=== PATIENT | male | born 1950 | race Caucasian/White ===

== ENCOUNTER → 2016-08-08 | Outpatient (CLI) | payer OTHER ==
[~2016-08-08] MED LIST: ALBU1AER9 INH; ALL300 PO; ALLO300T2 PO; ASPI81TA28 PO; ATEN50TA8 PO; ATOR-26 PO; BENZ100C84 PO; CLR10 PO; COLC0.6T54 PO; CYAN100T PO; FLUT0.15 NAE; FRS/40 PO; LANS15CA6 PO; LATA0.009 OPB; LISI-725 PO; LISI10TA PO; MULT-506 PO; MULT-513 PO; NTRGSL/4 UT; POTA20TA16 PO; PSYL48.511 PO; RIVA1TAB4 PO; SPRIN/30 INH; SYMIN160 INH; TNR50 PO; VNTHFA/IN INH; ZNTT/150 PO
== END ==
LOC: C.RDSM 14:45
PROVIDERS: ATTEND Physical Medicine & Rehabilitation Sports Medicine
DX: Z96.652 Presence of left artificial knee joint (principal)

== ENCOUNTER → 2017-02-06 | Outpatient (CLI) | payer OTHER | END | disposition home or self-care (01) | LOC: C.RDSM 09:27 | PROVIDERS: ATTEND Physical Medicine & Rehabilitation Sports Medicine | DX: Z96.652 Presence of left artificial knee joint (principal) ==

== ENCOUNTER 2017-11-12 11:29 | Emergency (ER) | payer OTHER ==
[~2017-11-12] VITALS: Ht 165.1 cm; Wt 111.3 kg
[~2017-11-12 11:29] MED LIST changes: -ALBU1AER9 INH; -ALL300 PO; -ATEN50TA8 PO; -COLC0.6T54 PO; -FLUT0.15 NAE; -LANS15CA6 PO; -LISI10TA PO; -MULT-506 PO; +POTA-639 PO; -POTA20TA16 PO; +RANI150T85 PO; -VNTHFA/IN INH; -ZNTT/150 PO
[2017-11-12 11:32] VITALS: TEMP 36.8; Ht 165.1 cm; Wt 111.3 kg
[2017-11-12] MEDS ORDERED: OXYMETAZOLINE HCL 0.05% NA SPR 15 ML BTL ONE (11:38)
[2017-11-12 12:17] LABS: HEMATOCRIT 41.9 % (42-52); HEMOGLOBIN 14.4 g/dL (14.0-18.0); MEAN CELL VOLUME 98.6 fL (80-100); MEAN CORPUSCULAR HEMOGLOBIN 33.9 pg (25-34); MEAN CORPUSCULAR HGB CONC 34.4 g/dl (32-36); MEAN PLATELET VOLUME 9.5 fL (7.4-10.4); PLATELET COUNT 182 K/uL (130-400); RED CELL DISTRIBUTION WIDTH CV 13.8 % (11.5-14.5); RED CELL DISTRIBUTION WIDTH SD 49.4 fL (36.4-46.3); WHITE BLOOD COUNT 7.78 K/uL (4.8-10.8)
[2017-11-12] MEDS ORDERED: HydrALAZINE HCL 20 MG/ML VIAL IV. STA ×2 (12:17→13:12)
[2017-11-12 12:25] LABS: PTT PATIENT 34.3 SECONDS (21.0-31.0)
[2017-11-12 12:46] LABS: CALCIUM 8.6 mg/dl (8.5-10.1); CREATININE 0.76 mg/dl (0.60-1.40); POTASSIUM 3.8 mmol/L (3.5-5.1)
[2017-11-12] MEDS ORDERED: LISINOPRIL 20 MG TAB PO STA (13:11)
[2017-11-12 14:40] VITALS: BP 162/77; PULSE 83; O2SAT 95
--- NOTE | 2017-11-12 14:43 | EMERGENCY ROOM VISIT NOTE ---
ED Visit Note First contact with patient: 11:38 CHIEF COMPLAINT: Nosebleed 2.5 hours HISTORY OF PRESENT ILLNESS: Patient is a 67-year-old male with past medical history significant for atrial fibrillation, hypertension, hyperlipidemia, coronary artery disease status post stenting, COPD on chronic oxygen, sleep apnea, morbid obesity, among other medical issues who presents the emergency department for evaluation of a nosebleed that started about 2 and half hours ago. Patient reports that his nose started to bleed abruptly around 9:00 this morning. He believes that it was coming from both nostrils. He had a nosebleed that prompted ED evaluation earlier this month. He states that he used the Afrin that he was given, and held pressure, but could not get the bleeding to stop. He did also check his blood pressure at home after the nosebleed started and noted that his blood pressure was elevated. He does wear chronic O2 by nasal cannula for COPD. He is on aspirin and Xarelto. He has not been ill recently with any cold or upper respiratory symptoms. He reports that he uses nasal saline spray to keep his nose from drying out. He reports that he has been compliant with his medications today. He did have follow-[facility], and unfortunately the only ENT provider is in [place] and he states that he is not able to get there due to transportation issues. He denies any headache, lightheadedness or dizziness. No chest pain or shortness of breath. REVIEW OF SYSTEMS: Review of systems as per HPI. All other systems reviewed were negative. 10 systems reviewed. PMH: Electronic medical records are reviewed and summarized as above/below. See Problem List. SOCIAL HISTORY: Patient lives at home. Former smoker. PHYSICAL EXAM: Vital Signs: Reviewed Nurse's notes. Blood pressure 175/85 in triage, O2 saturation 93% on room air. Respiratory rate 20 and unlabored. CONSTITUTIONAL: Patient is slightly anxious appearing obese 67-year-old male who is awake and alert and sitting upright on the gurney with a nasal clamp in place. HEENT: Normocephalic, atraumatic. Pupils equal, round, reactive to light and accommodation. EOMs intact without nystagmus. Sclera are anicteric. Tympanic membranes intact, with normal landmarks. External canals are clear. Examination of the right nostril notes active bleeding from unidentified source. No septal hematoma noted. There is some moist blood in the left nostril, but no active bleeding. Examination of the posterior pharynx does show some blood, but no active bleeding into the back of the throat. Airways patent. HEART: Irregular rate and rhythm. No murmur appreciated. LUNGS: Breath sounds are diminished, but clear to auscultation bilaterally. EMERGENCY DEPARTMENT COURSE: The patient was seen and assessed as above. His old records were reviewed. His blood pressure was rechecked at the time I examined him and was 200/143. I had the patient blow his nose clear of all clots, then sprayed 2 squirts of Afrin and several puffs of HemoDerm powder into the right nostril, then applied a nasal clamp. Patient was placed on continuous cardiopulmonary monitoring. IV lock was initiated and laboratory studies were collected. Patient history and presentation were reviewed with Dr. George who also evaluated the patient. He remained persistently hypertensive and was therefore given hydralazine 10 mg IV. He was reassessed frequently. With the nasal clamp in place, he did not have any significant bleeding around the clamp, and reported only minimal bleeding down the back of his throat. CBC, coags and BMP were performed and were fairly unremarkable. H&H is 14 and 41. INR is 1.0. Electrolytes are without significant abnormality, BUN and creatinine 21 and 0.76. The patient was placed on nasal cannula oxygen through his mouth while in the emergency department. His blood pressure did not improve significantly with the first dose of IV hydralazine. He was given an additional 5 mg IV, with lisinopril 20 mg orally. Nasal clamp was removed after being in place for roughly 40 minutes, and the patient was observed with no further bleeding. He was monitored in the emergency department for over 3 hours to watch for bleeding and to monitor his blood pressure. He was given a meal tray which he tolerated. The patient's blood pressure improved, last reading at discharge was 160/77. Treatment recommendations were discussed with the patient. It was advised that he hold his Xarelto for the next 4 days until he is seen at the [facility]. He was reminded not to touch, blow or manipulate his nose in any way. He has Afrin any nasal clamp at home that he can use. He was given an oxygen mask to use in lieu of the nasal cannula this week, to allow the nasal mucosa to heal. With regards to his blood pressure, he was advised to take a total of 40 mg of lisinopril daily, and watch his blood pressure closely at home. He does have an appointment tomorrow to have blood work drawn at the [facility], then reports that he has an appointment , 11/19 at which point he can reassess with his primary care provider. Certainly if he develops recurrent bleeding that he is unable to control at home he should return to the emergency department immediately. Patient expressed understanding of this and was agreeable. He was discharged home with a ride from a friend in stable condition. Medication reconciliation: I attest that I have personally reviewed the patient' s current medication list. Blood pressure screening: Patient was found to have an elevated blood pressure and was referred to their primary doctor for recheck and further treatment. Differential diagnoses entertained included trauma, coagulopathy, epistaxis, hypertensive emergency/urgency, among others. Problem List Medical Problems: (1) Anterior epistaxis Status: Resolved (2) Asthma Status: Chronic (3) CHF (congestive heart failure) Status: Chronic (4) Chronic Obstructive Pulmonary Disease, Unspecified Status: Chronic (5) Coronary Atherosclerosis Of [place] Coronary Vessel Status: Chronic (6) Dependence On Supplemental Oxygen Status: Chronic (7) Epistaxis Status: Resolved (8) Esophageal Reflux Status: Chronic (9) Gout, Unspecified Status: Chronic (10) Hypertension Status: Chronic (11) Hypoxemia Status: Resolved (12) Left knee DJD Status: Resolved (13) Long-Term(Current)Use Of Antiplatelet/Antithrombotic Status: Chronic (14) Mixed Hyperlipidemia Status: Chronic (15) New onset a-fib Status: Resolved (16) New onset afib with RVR Status: Resolved (17) Paroxysmal Atrial Fibrillation Status: Chronic (18) Precordial chest pain Status: Resolved (19) SOBOE (shortness of breath on exertion) Status: Resolved Surgical Problems: (1) H/O heart artery stent Status: Resolved (2) Knee Joint Replacement Status Status: Resolved Current/Historical Medications Scheduled Allopurinol (Zyloprim), 300 MG PO DAILY Aspirin (Aspirin Ec), 81 MG PO QAM Atenolol (Atenolol), 50 MG PO QAM Atorvastatin (Lipitor), 40 MG PO QPM Budesonide/Formoterol Fumarate (Symbicort 160/4.5 Inhaler ), 2 PUFFS INH BID Cyanocobalamin (Vitamin B-12), 1 TAB PO DAILY Furosemide (Lasix), 40 MG PO DAILY Latanoprost (Xalatan 0.005% Oph Sumi), 1 DROPS OPB HS Lisinopril (Zestril), 20 MG PO DAILY Loratadine (Claritin), 10 MG PO DAILY Multivitamins/Minerals (Mvi With Minerals), 1 TAB PO DAILY Nitroglycerin (Nitrostat), 0.4 MG UT PRN Potassium Ext Rel (Klor-Con), 20 MEQ PO DAILY Psyllium (Eq Fiber Therapy), 1 TBS PO TID Rivaroxaban (Xarelto), 1 TAB PO DAILY Tiotropium [place] (Spiriva Handihaler), 1 CAP INH DAILY Scheduled PRN Ranitidine (Zantac), 150 MG PO BID PRN for HEARTBURN Allergies Coded Allergies: NO KNOWN DRUG ALLERGIES (Verified Allergy, Unknown, NKDA, 02/21/17) Uncoded Allergies: TIDE LAUNDRY DETERGENT (Allergy, Unknown, RASH, 07/31/15) Vital Signs Date Time Temp Pulse Resp B/P (MAP) Pulse Ox O2 Delivery O2 Flow Rate FiO2 11/12/17 14:40 83 18 162/77 95 Nasal Cannula 2.0 11/12/17 14:06 88 18 155/87 97 Nasal Cannula 2.0 11/12/17 13:24 78 18 188/106 98 Nasal Cannula 2.0 11/12/17 13:05 74 18 210/97 97 Nasal Cannula 2.0 11/12/17 12:49 191/90 11/12/17 12:39 74 19 194/87 96 Nasal Cannula 11/12/17 12:26 69 20 191/92 93 11/12/17 12:26 Nasal Cannula 2.0 11/12/17 12:21 71 11/12/17 12:12 73 20 192/92 93 Room Air 11/12/17 11:56 22 200/143 96 Room Air 11/12/17 11:32 36.8 75 20 175/85 93 Room Air Laboratory Results 11/12/17 12:05 11/12/17 12:05 Test 11/12/17 12:05 Red Blood Count 4.25 M/uL (4.7-6.1) Mean Corpuscular Volume 98.6 fL (80-100) Mean Corpuscular Hemoglobin 33.9 pg (25-34) Mean Corpuscular Hemoglobin Concent 34.4 g/dl (32-36) RDW Standard Deviation 49.4 fL (36.4-46.3) RDW Coefficient of Variation 13.8 % (11.5-14.5) Mean Platelet Volume 9.5 fL (7.4-10.4) Prothrombin Time 10.7 SECONDS (9.0-12.0) Prothromb Time International Ratio 1.0 (0.9-1.1) Activated Partial Thromboplast Time 34.3 SECONDS (21.0-31.0) Partial Thromboplastin Ratio 1.3 Anion Gap 7.0 mmol/L (3-11) Est Creatinine Clear Calc Drug Dose 108.6 ml/min Estimated GFR () 109.4 Estimated GFR (Non- 94.4 BUN/Creatinine Ratio 27.1 (10-20) Calcium Level 8.6 mg/dl (8.5-10.1) Medications Administered Medications (Trade) Dose Ordered Sig/Shruti Route Start Time Stop Time Status Last Admin Dose Admin Hydralazine HCl (HydrALAZINE INJ) 10 mg NOW STAT IV. 11/12/17 12:17 11/12/17 12:18 DC 11/12/17 12:27 10 MG Lisinopril (Zestril Tab) 20 mg NOW STAT PO 11/12/17 13:11 11/12/17 13:12 DC 11/12/17 13:40 20 MG Hydralazine HCl (HydrALAZINE INJ) 5 mg NOW STAT IV. 11/12/17 13:12 11/12/17 13:13 DC 11/12/17 13:37 5 MG Departure Information Impression Primary Impression: Epistaxis Additional Impression: Elevated blood pressure reading with diagnosis of hypertension Referrals Yuli Malone M.D. (PCP) Patient Instructions My [facility] Additional Instructions Do not blow, rub, pick or touch your nose. No nasal sprays. Use oxygen mask in place of nasal cannula for the next 4-5 days. Hold Xarelto Monday-Monday night. You can discuss this with the coagulation clinic at the [facility] tomorrow. Increase Lisinopril to 40 mg daily. Check and record blood pressure readings at home. Return to the ED for uncontrolled bleeding, headaches, chest pain, shortness of breath, passing out, dizziness or any other concerns. [facility]. Problem Qualifiers
== END 2017-11-12 14:59 | disposition home or self-care (01) ==
LOC: C.EDB 11:30 → C.EDD 14:59
DX: R04.0 Epistaxis (principal); I11.0 Hypertensive heart disease with heart failure; I50.9 Heart failure, unspecified; I48.0 Paroxysmal atrial fibrillation; J44.9 Chronic obstructive pulmonary disease, unspecified; J45.909 Unspecified asthma, uncomplicated; E78.2 Mixed hyperlipidemia; K21.9 Gastro-esophageal reflux disease without esophagitis; M10.9 Gout, unspecified; Z79.82 Long term (current) use of aspirin; Z79.01 Long term (current) use of anticoagulants; Z79.51 Long term (current) use of inhaled steroids; Z79.899 Other long term (current) drug therapy; Z87.891 Personal history of nicotine dependence; Z91.048 Other nonmedicinal substance allergy status

== ENCOUNTER 2017-11-23 21:34 | Emergency (ER) | payer OTHER ==
[~2017-11-23] VITALS: Ht 165.1 cm; Wt 109.0 kg
[~2017-11-23 21:34] MED LIST changes: -BENZ100C84 PO
[2017-11-23 21:36] VITALS: TEMP 36.3; Ht 165.1 cm; Wt 109.0 kg
[2017-11-23] MEDS ORDERED: LIDOCAINE HCL 4% TOP 50 ML VIAL EXT ONE (21:36)
[2017-11-23] MEDS ORDERED: SODIUM CHLORIDE 0.9% 500 ML BAG IV ONE (21:36)
[2017-11-23] MEDS ORDERED: OXYMETAZOLINE HCL 0.05% NA SPR 15 ML BTL ONE (21:41)
[2017-11-23] MEDS ORDERED: SILVER NITR/POTASSIUM NITRATE APPLICATOR ONE (22:16)
--- NOTE | 2017-11-23 22:32 | EMERGENCY ROOM VISIT NOTE ---
ED Visit Note First contact with patient: 21:51 The patient was seen and examined with Polina Palencia PA-C. I agree with the history, physical and findings. Please see the note for disposition and details. Physical examination findings: Anterior bleeding source. PROCEDURE NOTE: ER treatment provided: Direct pressure Intranasal Afrin and lidocaine Suctioning Anterior nasal epistaxis cautery with silver nitrate Fibrillar hemostatic dressing applied. The patient did very well with this. This worked to stop his bleeding. He did have some oozing. A dose of TXA was applied and this resulted in hemostasis.
[2017-11-23] MEDS ORDERED: LISI40TA3 PO (22:57)
[2017-11-23] MEDS ORDERED: ATEN50TA8 PO (22:57)
[2017-11-23] MEDS ORDERED: RIVA1TAB4 PO (22:57)
[2017-11-24 00:55] VITALS: BP 150/85; PULSE 98; O2SAT 97
--- NOTE | 2017-11-24 04:23 | EMERGENCY ROOM VISIT NOTE ---
History First contact with patient: 21:51 Chief Complaint: NOSE BLEED (MINOR) Stated Complaint: UNCONTROLLED NOSE BLEED History of Present Illness The patient is a 67 year old male who presents to the Emergency Room with complaints of nose bleeding from the right nostril for the past few hours. This is been a recurrent problem for him. [facility] locally. Patient states his blood pressure always runs high when he is in the ER. He is on Xarelto. Patient denies chest pain, dyspnea, weakness, lightheadedness or dizziness. No injury to the area. Review of Systems An 10 system review of systems was completed with positives and pertinent negatives listed in the HPI. Past Medical/Surgical History Medical Problems: (1) Anterior epistaxis (2) Asthma (3) CHF (congestive heart failure) (4) Chronic Obstructive Pulmonary Disease, Unspecified (5) Coronary Atherosclerosis Of [place] Coronary Vessel (6) Dependence On Supplemental Oxygen (7) Epistaxis (8) Esophageal Reflux (9) Gout, Unspecified (10) Hypertension (11) Hypoxemia (12) Left knee DJD (13) Long-Term(Current)Use Of Antiplatelet/Antithrombotic (14) Mixed Hyperlipidemia (15) New onset a-fib (16) New onset afib with RVR (17) Paroxysmal Atrial Fibrillation (18) Precordial chest pain (19) SOBOE (shortness of breath on exertion) Surgical Problems: (1) H/O heart artery stent (2) Knee Joint Replacement Status Family History Patient reports no known family medical history. Social History Smoking Status: Former Smoker Drug Use: none Marital Status: single Housing Status: lives alone Occupation Status: retired, disabled Current/Historical Medications Scheduled Allopurinol (Zyloprim), 300 MG PO DAILY Aspirin (Aspirin Ec), 81 MG PO QAM Atenolol (Tenormin), 50 MG PO QAM Atorvastatin (Lipitor), 40 MG PO QPM Budesonide/Formoterol Fumarate (Symbicort 160/4.5 Inhaler ), 2 PUFFS INH BID Cyanocobalamin (Vitamin B-12), 1 TAB PO DAILY Furosemide (Lasix), 40 MG PO DAILY Latanoprost (Xalatan 0.005% Oph Sumi), 1 DROPS OPB HS Lisinopril (Lisinopril), 40 MG PO QAM Loratadine (Claritin), 10 MG PO DAILY Multivitamins/Minerals (Mvi With Minerals), 1 TAB PO DAILY Nitroglycerin (Nitrostat), 0.4 MG UT PRN Potassium Ext Rel (Klor-Con), 20 MEQ PO DAILY Rivaroxaban (Xarelto), 20 MG PO DAILY Tiotropium [place] (Spiriva Handihaler), 1 CAP INH DAILY Scheduled PRN Psyllium (Eq Fiber Therapy), 1 TBS PO DAILY PRN for Constipation Ranitidine (Zantac), 150 MG PO BID PRN for HEARTBURN Physical Exam Vital Signs Date Time Temp Pulse Resp B/P (MAP) Pulse Ox O2 Delivery O2 Flow Rate FiO2 11/24/17 00:55 98 18 150/85 97 11/23/17 23:47 96 16 159/98 98 Nasal Cannula 11/23/17 22:05 92 22 187/99 92 Room Air 11/23/17 21:36 36.3 111 22 195/97 89 Room Air Physical Exam VITALS: Vitals are noted on the nurse's note and reviewed by myself. Vital signs hypertensive. GENERAL: Pleasant male anxious appearing wearing nasal cannula oxygen, in no acute distress, nondiaphoretic, well-developed well-nourished. SKIN: The skin was without rashes, erythema, edema, or bruising. There is no tenting of the skin. Capillary reflex less than 2 seconds. HEAD: Normocephalic atraumatic. EARS: External auditory canals clear, tympanic membranes pearly davis without erythema or effusion bilaterally. EYES: Pupils equal round and reactive to light and accommodation. Conjunctivae without injection, sclerae without icterus. Extraocular movements intact. NOSE: Right nare profusely bleeding from the [place] area, left knee are clear without hematoma. No sinus tenderness. MOUTH: Mucous membranes moist. Pharynx without erythema or exudate. Uvula midline. Airway patent. Tongue does not deviate. NECK: Supple without nuchal rigidity. No lymphadenopathy. No thyromegaly. Cervical spine is nontender. No JVD. HEART: Regular rate and rhythm LUNGS: Clear to auscultation bilaterally without wheezes, rales or rhonchi. No retractions or accessory muscle use. ABDOMEN: Positive bowel sounds x 4. Normal tympanic percussion. Soft, nontender, without masses or organomegaly. Hernandez sign negative. No guarding or rebound tenderness. No CVA tenderness MUSCULOSKELETAL: No muscle atrophy, erythema, or edema noted. NEURO: Patient was alert and oriented to person place and time. Normal sensation to light and sharp touch. No focal neurological deficits. Medical Decision & Procedures Medications Administered Medications (Trade) Dose Ordered Sig/Shruti Route Start Time Stop Time Status Last Admin Dose Admin Oxymetazoline HCl (Afrin 0.05% Nasal [place]) 75 sprays STK-MED ONCE .ROUTE 11/23/17 21:41 11/23/17 21:42 DC 11/23/17 21:55 75 SPRAYS Silver Nitrate/ Potassium Nitrate (Silver Nitrate Applicators) 1 appl STK-MED ONCE .ROUTE 11/23/17 22:16 11/23/17 22:17 DC 11/23/17 22:16 1 APPL ED Course Prior records/ancillary studies reviewed. Triage Nursing notes reviewed. The patient's history was concerning for epistaxis. Differential diagnosis: Etiologies such as anterior epistaxis, coagulopathy, traumatic injury, fracture , septal hematoma, posterior epistaxis as well as other pathologies were entertained. Physical examination findings: As above. Anterior bleeding source. ER treatment provided: Direct pressure Intranasal phenylephrine Cauterization and suctioning by my attending. Bleeding persisted and 4 x 4 soaked with TXA was packed in the nose for 20 minutes and removed. Hemostasis was achieved. Patient was watched for an hour no rebleeding. On reassessment the patient felt better. Diagnostics interpreted by me: Deferred This appears to be consistent with anterior epistaxis. Patient was treated as above. Hemostasis was achieved. He was observed for over an hour with no rebleeding. He was advised to [facility] to make an earlier appointment with ENT. He was advised to wear his nasal cannula in his mouth tonight. He was advised to follow[facility]up the [facility] with his elevated blood pressure. He is advised that if the bleeding restarts to apply the Afrin and the nasal clamp and if it does not stop within 15 minutes then to return to the ER. He is advised to return to the ER immediately for heavy bleeding, lightheadedness, dizziness, weakness, worsening signs or symptoms or as needed. Patient was neurovascularly and neurologically intact. He is well-appearing. He was ambulating throughout the ER without difficulties. By the evaluation outlined above emergent etiologies such as coagulopathy, traumatic injury, fracture, septal hematoma, posterior epistaxis, as well as others were deemed relatively unlikely. The pt informed about the findings as listed above. All questions were answered and pleased with the treatment. Return instructions were outlined and the patient was discharged in stable condition. Referral: The patient was referred to [facility] for a recheck of the current condition Case reviewed with my attending The chart was completed utilizing [employer] Speech voice recognition software. Grammatical errors, random word insertions, pronoun errors, and incomplete sentences are an occassional consequence of this system due to software limitations, ambient noise, and hardware issues. Any formal questions or concerns about the content, text, or information contained within the body of this dictation should be directly addressed to the physician assistant operator for clarification. Medical Decision as above Medication Reconcilliation Current Medication List: was personally reviewed by me Blood Pressure Screening Patient's blood pressure: Elevated blood pressure Blood pressure disposition: Referred to PCP Impression Primary Impression: Epistaxis Departure Information Dispostion Home / Self-Care Condition GOOD Referrals No Doctor, Assigned (PCP) Forms WORK / SCHOOL INSTRUCTIONS, HOME CARE DOCUMENTATION FORM, IMPORTANT VISIT INFORMATION Patient Instructions Nosebleeds - [facility] Additional Instructions Continue to monitor your blood pressure. It was high again here. Avoid scratching, rubbing, picking, or blowing your nose. The continuous wave operator your nasal passages the more likely they are to bleed. The following two products are available [id number] at most drug stores/pharmacies. [place] nasal spray or similar generic saline spray to keep the nose moist 3 to 4 times a day. If bleeding recurs apply direct pressure for an uninterrupted 20 minutes. On and off pressure is much less effective because it will disturb the clots that are forming. If the bleeding is still a problem after 20 minutes or is so heavy despite the pressure return to the emergency department. Continue current medications. Call ENT for follow up. Call the [facility] in [facility] and have him expedite your ENT referral. Follow-up with your primary care physician in 2 to 3 days for a recheck of your current condition.
[2017-11-24] MEDS ORDERED: TRANEXAMIC ACID INJ 1,000 MG in SODIUM CHLORIDE 0.9% 100ML 100 ML TOP SCH (06:00)
== END 2017-11-24 00:55 | disposition home or self-care (01) ==
LOC: C.EDB 21:35 → C.EDC 11-24 00:55
DX: R04.0 Epistaxis (principal); J45.909 Unspecified asthma, uncomplicated; I50.9 Heart failure, unspecified; I11.0 Hypertensive heart disease with heart failure; J44.9 Chronic obstructive pulmonary disease, unspecified; Z99.81 Dependence on supplemental oxygen; I25.10 Atherosclerotic heart disease of native coronary artery without angina pectoris; K21.9 Gastro-esophageal reflux disease without esophagitis; M10.9 Gout, unspecified; M17.12 Unilateral primary osteoarthritis, left knee; E78.2 Mixed hyperlipidemia; I48.91 Unspecified atrial fibrillation; Z95.5 Presence of coronary angioplasty implant and graft; Z87.891 Personal history of nicotine dependence; Z79.82 Long term (current) use of aspirin; Z79.01 Long term (current) use of anticoagulants; Z79.899 Other long term (current) drug therapy

== ENCOUNTER → 2017-11-30 | Day surgery (SDC) | payer OTHER ==
[2017-11-28 10:36] VITALS: Ht 165.1 cm; Wt 104.5 kg
--- NOTE | 2017-11-29 10:40 | History and Physical: Surg Cnt ---
History & Physical Date Nov 29, 2017. Chief Complaint nose bleeds History of Present Illness The patient is a 67 year old male with complaints of persistent epistaxis Past Medical/Surgical History Medical Problems: (1) Anterior epistaxis (2) Asthma (3) CHF (congestive heart failure) (4) Chronic Obstructive Pulmonary Disease, Unspecified (5) Coronary Atherosclerosis Of [place] Coronary Vessel (6) Dependence On Supplemental Oxygen (7) Epistaxis (8) Esophageal Reflux (9) Gout, Unspecified (10) Hypertension (11) Hypoxemia (12) Left knee DJD (13) Long-Term(Current)Use Of Antiplatelet/Antithrombotic (14) Mixed Hyperlipidemia (15) New onset a-fib (16) New onset afib with RVR (17) Paroxysmal Atrial Fibrillation (18) Precordial chest pain (19) SOBOE (shortness of breath on exertion) Surgical Problems: (1) H/O heart artery stent (2) Knee Joint Replacement Status Additional History Hepatic Disease: No Endocrine Disorder: No Kidney Disease: No Hypertension: Yes Heart Disease: Yes Bleeding Tendencies: Yes Infectious Diseases: No Allergies Coded Allergies: NO KNOWN DRUG ALLERGIES (Verified Allergy, Unknown, NKDA, 11/28/17) Uncoded Allergies: TIDE LAUNDRY DETERGENT (Allergy, Unknown, RASH, 07/31/15) Home Medications Scheduled Allopurinol (Zyloprim), 300 MG PO QAM Aspirin (Aspirin Ec), 81 MG PO QAM Atenolol (Tenormin), 50 MG PO QAM Atorvastatin (Lipitor), 40 MG PO QPM Budesonide/Formoterol Fumarate (Symbicort 160/4.5 Inhaler ), 2 PUFFS INH BID Cyanocobalamin (Vitamin B-12), 1 TAB PO DAILY Furosemide (Lasix), 40 MG PO QAM Latanoprost (Xalatan 0.005% Oph Sumi), 1 DROPS OPB HS Lisinopril (Lisinopril), 40 MG PO QAM Loratadine (Claritin), 10 MG PO QAM Multivitamins/Minerals (Mvi With Minerals), 1 TAB PO DAILY Nitroglycerin (Nitrostat), 0.4 MG UT PRN Potassium Ext Rel (Klor-Con), 20 MEQ PO QAM Rivaroxaban (Xarelto), 20 MG PO QPM Tiotropium [place] (Spiriva Handihaler), 1 CAP INH QAM Scheduled PRN Psyllium (Eq Fiber Therapy), 1 TBS PO DAILY PRN for Constipation Ranitidine (Zantac), 150 MG PO BID PRN for HEARTBURN Physical Examination Skin: warm/dry, no rash Eyes: normal inspection, EOMI, sclerae normal ENT: + pertinent finding (bloody mucus) Head: normocephalic, atraumatic Neck: supple, no adenopathy, trachea midline Respiratory/Chest: lungs clear, normal breath sounds, no respiratory distress Cardiovascular: regular rate, rhythm, no edema, no murmur Diagnosis epistaxis Plan of Treatment endoscopic cautery
[~2017-11-30] VITALS: Ht 165.1 cm; Wt 104.5 kg
[~2017-11-30] MED LIST changes: +ATEN50TA8 PO; +BACITRACIN OINT 15 GM TUBE ONE; +EpINEphrine INJ 1MG/ML AMP 1 MG/ML AMP ONE; +FLOSEAL HEMOSTATIC MATRIX 5ML TOP ONE; +GELATIN SPONGE SZ 100 ONE; +LIDO 2%/EPINEPHRINE 1:100000 20 ML VIAL ONE; +LIDOCAINE 4% OP SOLN DROP CHARGE ONE; -LISI-725 PO; +LISI40TA3 PO; -TNR50 PO
--- NOTE | 2017-11-30 12:56 | History & Physical Bridge Note ---
H&P Re-Evaluation Bridge Note: I have examined the patient, reviewed the History & Physical and in the interval since the performance of the History & Physical I have noted the following changes of clinical significance: No changes noted
--- NOTE | 2017-11-30 13:57 | History & Physical Bridge Note ---
H&P Re-Evaluation Bridge Note: I have examined the patient, reviewed the History & Physical and in the interval since the performance of the History & Physical I have noted the following changes of clinical significance: ASA 3. No changes noted
--- NOTE | 2017-11-30 14:01 | Discharge Instructions-SurgCtr ---
Discharge Instructions Date of Service Nov 30, 2017. Visit Reason for Visit: Epistaxis Discharge Discharge Diagnosis / Problem: same Discharge Goals Goal(s): Therapeutic intervention Activity Recommendations Activity Limitations: per Instructions/Follow-up section Anesthesia . Post Anesthesia Instructions: If you have had General Anesthesia or IV Sedation: * Do not drive today. * Resume driving when surgeon permits. * Do not make important decisions or sign legal documents today. * Call surgeon for: 1. Temperature elevations greater than 101 degrees F. 2. Uncontrollable pain. 3. Excessive bleeding. 4. Persistent nausea and vomiting. 5. Medication intolerance (nausea, vomiting or rash). * For nausea and vomiting use only clear liquids such as: tea, soda, bouillon until nausea subsides, then gradually increase diet as tolerated. * If you have any concerns or questions, call your surgeon's office. If physician is unavailable and it is an emergency, call 911 or go to the nearest emergency room. . Instructions / Follow-Up Instructions / Follow-Up ACTIVITY RECOMMENDATIONS: * Being up and around is good, but no strenuous activity, heavy lifting or physical exertion for one week. * Keep your head elevated 30 degrees when lying down or sleeping. * Do not blow your nose for 48 hours, sniff back instead. * Avoid hot showers. OVER THE COUNTER MEDICATIONS: * You may use Tylenol * Avoid aspirin or aspirin containing products, e.g. as they may increase bleeding. SPECIAL CARE INSTRUCTIONS: * Expect to have bloody drainage from your nose and/or down your throat for one to three days. Change drip pad as needed. * Begin irrigating your nose with saline solution today, at least six to ten times per day and sniff back to help remove old clots or crust. * You may experience nasal and facial congestion, pain and pressure, this is normal. * Please call with any significant and/or progressive pain, redness, swelling around the eyes, visual changes, fever of 101.5 degrees F, active bleeding or any problems or concerns. * If active bleeding occurs, spray the nose three times at one minute intervals with Afrin spray and call or cell phone: . If unable to reach the doctor, go to the nearest Emergency Department. Special Diet: * Avoid extremely hot fluids. FOLLOW UP VISIT: Follow-up Visit with Dr. Duffy If not already scheduled, please call to schedule. Diet Recommendations Home Diet: resume previous diet Pending Studies Studies pending at discharge: no Medical Emergencies . Who to Call and When: Medical Emergencies: If at any time you feel your situation is an emergency, please call 911 immediately. . Non-Emergent Contact Non-Emergency issues call your: Primary Care Provider . . "Provider Documentation" section prepared by Joy Duffy. [place] Drug Monitoring Program Search Results: no issues identified
[2017-11-30] MEDS: TETRACAINE 4% SOLN TOP SCH ×3 (14:25→14:38)
--- NOTE | 2017-11-30 14:37 | [facility] Post Operative Brief Note ---
Immediate Operative Summary Operative Date Nov 30, 2017. Pre-Operative Diagnosis epistaxis Post-Operative Diagnosis same as preop Procedure(s) Performed Endoscopic Cautery Surgeon DR. Duffy Dealer Development Manager Surgeon(s) none Estimated Blood Loss 2ml Findings Consistent with Post-Op Diagnosis Specimens none Drains None Anesthesia Type Local Complication(s) none Disposition Accompanied Pt To Recover: yes Disposition: Recovery Room / PACU Overlapping Procedure I was present for: the critical portions of procedure. I was immediately available: during the entire case
[2017-11-30 15:18] VITALS: BP 199/82; PULSE 71; O2SAT 94
--- NOTE | 2017-11-30 19:09 | OPERATIVE REPORT ---
DATE OF OPERATION: 11/30/2017 PREOPERATIVE DIAGNOSIS: Epistaxis. POSTOPERATIVE DIAGNOSIS: Epistaxis. PROCEDURE: Endoscopic cautery and posterior packing. SURGEON: Joy Duffy MD ANESTHESIA: Local. COMPLICATIONS: None. BLOOD LOSS: 2 mL HISTORY OF PRESENT ILLNESS: This 67-year-old gentleman presented with recurrent epistaxis requiring cautery in the ER; however, the bleeding recurred. DESCRIPTION OF PROCEDURE: The patient brought to the operating room and placed in a semi-sitting position. Topical anesthesia was obtained using cottonoids with a solution of 4 mL of 4% Xylocaine. Injection of 2% Xylocaine 1:100,000 strength epinephrine was also used. The bleeding site was at the right mid septum. This was cauterized using the suction cautery with a setting at 15, noting good control of the bleeding site. The nose was packed with a layered FloSeal from posteriorly to anteriorly layering 10 mL of FloSeal in the right nostril. The patient tolerated the procedure well and was taken to recovery area in satisfactory condition. I attest to the content of the Intraoperative Record and any orders documented therein. Any exception s are noted below.
== END | disposition home or self-care (01) ==
LOC: X.SURG 10:29
PROVIDERS: ATTEND Otolaryngology
DX: R04.0 Epistaxis (principal); J45.909 Unspecified asthma, uncomplicated; I11.0 Hypertensive heart disease with heart failure; I50.9 Heart failure, unspecified; J44.9 Chronic obstructive pulmonary disease, unspecified; I25.10 Atherosclerotic heart disease of native coronary artery without angina pectoris; K21.9 Gastro-esophageal reflux disease without esophagitis; M10.9 Gout, unspecified; E78.2 Mixed hyperlipidemia; I48.0 Paroxysmal atrial fibrillation; Z99.81 Dependence on supplemental oxygen; Z96.659 Presence of unspecified artificial knee joint; Z79.82 Long term (current) use of aspirin

== ENCOUNTER 2019-12-05 09:39 | Observation (INO) ==
[2019-12-05] MEDS ORDERED: LEVALBUTEROL TARTRATE 15 GM HFA.AER.AD INH STA (10:17)
[2019-12-05] MEDS ORDERED: methylPREDNISolone 125 MG/2 ML VIAL IV STA (10:17)
[2019-12-05] MEDS ORDERED: MAGNESIUM SULFATE / D5W 1 GM/100 ML BAG IV STA (10:18)
[2019-12-05 10:38] LABS: Basophils # (auto) 0.01 K/uL (0-0.2); Basophils % (auto) 0.1 %; Eosinophils # (auto) 0.16 K/uL (0-0.5); Hematocrit (blood only) 31.2 % (42-52); Hemoglobin 9.6 g/dL (14.0-18.0); Immature Granulocytes # (auto) 0.01 K/uL (0.00-0.02); Immature Granulocytes % (auto) 0.1 %; Lymphocytes # (auto) 1.41 K/uL (1.2-3.4); Lymphocytes % (auto) 17.8 %; Mean Corpuscular Hemoglobin 28.4 pg (25-34); Mean Corpuscular Hgb Conc 30.8 g/dL (32-36); Mean Corpuscular Volume 92.3 fL (80-100); Monocytes # (auto) 0.81 K/uL (0.11-0.59); Monocytes % (auto) 10.2 %; Neutrophils # (auto) 5.54 K/uL (1.4-6.5); Neutrophils % (auto) 69.8 %; Platelet Count 280 K/uL (130-400); RDW Coefficient of Variation 17.2 % (11.5-14.5); RDW Standard Deviation 58.4 fL (36.4-46.3); Red Blood Count 3.38 M/uL (4.7-6.1); White Blood Count 7.94 K/uL (4.8-10.8)
[2019-12-05 10:50] LABS: INR 1.1 (0.9-1.1); Partial Thromboplastin Ratio 1.2; Partial Thromboplastin Time 34.2 Seconds (21.0-31.0); Prothrombin Time 11.4 Seconds (9.0-12.0)
--- NOTE | 2019-12-05 10:50 | XRay Report ---
XR chest 1V portable CLINICAL HISTORY: Chest pain. COMPARISON STUDY: Chest CT December 18, 2015. Chest radiograph February 21, 2017. FINDINGS: This exam is compromised by portable technique. Cardiomegaly is unchanged. There is no evid ence for pulmonary edema. No lobar consolidation is identified. The appearance of the chest is unchan ged. IMPRESSION: No acute cardiopulmonary findings. Stable cardiomegaly. No significant change in appeara nce of the chest. ACT 112: Negative or not required by law. Electronically signed by: John Melendez M.D. 12/05/2019 10:48 AM
[2019-12-05 10:56] LABS: Alanine Aminotransferase 18 U/L (12-78); Albumin Level 3.7 gm/dl (3.4-5.0); Aspartate Aminotransferase 13 U/L (15-37); BUN Creatinine Ratio 13.9 (10-20); Blood Urea Nitrogen 13 mg/dl (7-18); Calcium 9.4 mg/dl (8.5-10.1); Carbon Dioxide 29 mmol/L (21-32); Chloride 103 mmol/L (98-107); Creatinine Clr Calc Pharmacy 95.7 ml/min; Est GFR (African American) 100.6; Est GFR (Non-African American) 86.8; Glucose 114 mg/dl (70-99); Lipase 97 U/L (73-393); Potassium 3.7 mmol/L (3.5-5.1); Sodium 139 mmol/L (136-145)
[2019-12-05 11:01] LABS: Albumin Globulin Ratio 1.1 (0.9-2); Alkaline Phosphatase 59 U/L (45-117); Bilirubin,Total 1.1 mg/dl (0.2-1); Creatine Kinase 75 U/L (39-308); Creatine Kinase MB < 1.0 ng/ml (0.5-3.6); Globulin 3.5 gm/dl (2.5-4.0); Total Protein 7.2 gm/dl (6.4-8.2); Troponin I < 0.015 ng/ml (0-0.045)
[2019-12-05 11:15] LABS: NT Pro B Type Natriuretic Pept 1024 pg/ml (0-900)
--- NOTE | 2019-12-05 12:15 | History & Physical Report ---
Date of Service December 05, 2019 Assessment & Plan (1) Asthma exacerbation: Suspect this is the cause of his increased coughing No fever, chills, chest x-ray findings, lab abnormalities or COVID-19 exposure - no swab to be performed Methylprednisolone 125 mg IV given in ER, continue 40mg IV BID Duonebs QID + PRN Continue his regular inhalers or hospital formulary equivalent on Spiriva and Symbicort (2) Chest pain: Appears to be musculoskeletal. She is going on for 3 days with negative troponin this is not ACS. Unlikely angina given reproducibility on palpation however if it continues to be exertional in nature could consider a stress test. Steroids for bronchitis and asthma exacerbation should help with costochondritis pain Troponin negative on admission and no change in his pain in the last 3 days therefore no need to repeat unless clinical change. (3) Chronic respiratory failure: On baseline O2 2L Aim O2 sats > 90% (4) Obstructive sleep apnea: Intolerant to CPAP - likely contributing towards chronic respiratory failure and hypertension (5) Obesity hypoventilation syndrome: Suspected. Likely contributing towards overal poor respiratory status. (6) Pulmonary asbestosis: Unclear history of this but he reports causes his chronic cough. (7) Constipation: Suspect may be contributing towards his GI bleed and poor respiratory status contributing towards his restrictive lung disease. (8) Chronic gout: Continue allopurinol 300mg PO daily (9) GERD (gastroesophageal reflux disease): HOB elevated > 30 degrees Switch omeprazole for pantoprazole as per hospital formulary (10) Lower GI bleed: Recent history of this. Trend Hgb especially with recurrence of constipation. Iron saturation with AM labs to assess possible benefit of IV iron. (11) Coronary artery disease: Known history of this with remote history of stent. On no antiplatelet for this but does take Xarelto. Continue atenolol, lisinopril and atorvastatin (12) Paroxysmal atrial fibrillation: Currently in NSR. Continue atenolol for rate control. Anticoagulation with Xarelto. Monitor on telemetry. (13) Hypertension: Continue his usual atenolol, lisinopril, lasix. Significantly elevated in ER although patient does note history of white coat hypertension and runs higher in the hospital than at home. Will add hydralazine 5mg IV PRN for sBP > 180. (14) DVT prophylaxis: Continue his usual Xarelto Admission and Anticipated Discharge Date Admission Date: 12/05/2019 History of Present Illness Chief Complaint: Chest pain Primary Care Provider: NO PCP Simone Thompson is a 69-year-old male who presents to the ER with chest pain and shortness of breath. [facility] available on [facility]. The patient reports having a chronic cough due to asbestosis with pleural plaques however this is been worse in the last 3 days. He is coughing up more yellow phlegm. Associated substernal chest pain, no worse today than the last 3 days, associated with coughing and exertion. Since his chest pain continued with coughing [facility] and [facility] going to the [facility] for further evaluation. He denies any palpitations, orthopnea, PND. He feels the nebulizers significantly help his shortness of breath. He has a remote history of coronary artery disease requiring a stent to assist in fusion 12 years ago. He has significant shortness of breath on exertion but not usually any chest pain on exertion. He is anemic but reports recent admission to [facility] due to a lower GI bleed (suspected hemorrhoids vs diverticular bleed) and his hemoglobin appears to be stable from that admission. Allergies Allergy/AdvReac Type Severity Reaction Status Date / Time No Known Drug Allergies Allergy Unknown NKDA Verified 12/05/19 10:29 TIDE LAUNDRY DETERGENT Allergy Unknown RASH Uncoded 12/05/19 10:29 Home Medications Home Medications Medication Instructions Recorded Confirmed Type albuterol sulfate [Ventolin HFA] 2 puff INHALATION QID PRN 03/30/19 12/05/19 History allopurinol [Zyloprim] 300 mg PO QAM 03/30/19 12/05/19 History atenolol [Tenormin] 50 mg PO HS 03/30/19 12/05/19 History atorvastatin [Lipitor] 40 mg PO HS 03/30/19 12/05/19 History budesonide-formoterol [Symbicort] 2 puff INHALATION BID 03/30/19 12/05/19 History furosemide [Lasix] 40 mg PO QAM 03/30/19 12/05/19 History latanoprost [Xalatan] 1 drp OPB HS 03/30/19 12/05/19 History lisinopril [Zestril] 20 mg PO BID 03/30/19 12/05/19 History loratadine [Claritin] 10 mg PO QAM 03/30/19 12/05/19 History nitroglycerin [Nitrostat] 0.4 mg SUBLINGUAL UD PRN 03/30/19 12/05/19 History potassium chloride [Klor-Con M20] 20 meq PO QAM 03/30/19 12/05/19 History rivaroxaban [Xarelto] 20 mg PO QDD 03/30/19 12/05/19 History tiotropium bromide [Spiriva with 1 cap INHALATION QAM 03/30/19 12/05/19 History HandiHaler] [id number] 3 tab PO TID 12/05/19 12/05/19 History [Fiber 6] omeprazole 20 mg PO QAM 12/05/19 12/05/19 History Past Med/Surg History Medical History Allergies Asthma Chronic gout Chronic respiratory failure Coronary artery disease Elevated blood pressure reading with diagnosis of hypertension Epistaxis GERD (gastroesophageal reflux disease) Hypertension Left knee DJD Lower GI bleed Obstructive sleep apnea Intolerant to CPAP Paroxysmal atrial fibrillation Pulmonary asbestosis Recurrent epistaxis SOBOE (shortness of breath on exertion) Surgical History History of cataract surgery b/l History of eyelid surgery History of tonsillectomy History of total knee arthroplasty Family History Other Family history non-contributory Social History Smoking Status: Former smoker Tobacco Type: Cigarettes Age Quit Using Tobacco: 39; packs per day: 2; Hx Alcohol Use: Yes Alcohol type: hard liquor Hx Substance Use: No Preferred Language: Slovenian Communication Ability: Effective Continuous Still Operator Required: No Beliefs That Will Affect Care: None Current Living Situation: Alone current occupational status: retired Other Information That Helps Us Care for You: No Feels Safe at Home: Yes Safety Concerns: Feels Safe At This Time Review of Systems Review of Systems: All systems reviewed & are unremarkable except as noted in HPI & below Physical Exam Constitutional: well developed and + morbidly obese; no acute distress Eyes: + anicteric sclerae; normal pupil size Neck: trachea midline, + short neck and + thick neck Respiratory: normal respiratory effort and + cough; no respiratory distress, no retractions, does not use accessory muscles and + not able to speak in complete sentence Auscultation: + diminished lung sounds (bibasal) Cardiovascular: Rate/Rhythm: regular rate and regular rhythm Heart Sounds: no murmur Extremities: normal capillary refill and + pedal edema (1+ b/l equal to knees); no calf tenderness Gastrointestinal (Abdomen): normal bowel sounds, soft, nontender, no hepatosplenomegaly Musculoskeletal: no cyanosis or clubbing, extremities motor strength 5/5 Skin: no rashes, warm and dry (venous stasis changes of lower extremities) Neurologic: moves all extremities and awake; not confused Psychiatric: A+Ox3, euthymic affect Genitourinary: no CVA tenderness Results & Data Results & Data ([facility]) Vital Signs (Past 12 Hours) Vital Signs Temp Pulse Resp BP Pulse Ox 12/05/19 11:32 97 12/05/19 10:17 96 12/05/19 09:48 36.8 C 77 18 206/103 H 95 Diagnostic Findings XR chest 1V portable IMPRESSION: No acute cardiopulmonary findings. Stable cardiomegaly. No significant change in appearance of the chest. ECG Indication: chest pain Rate (beats per minute): 83 Findings: + other (PVCs) Comparison ECG Date: from (02/23/2017) Change: the following changes noted (PVCs now present) Code Status & VTE Plan Code Status Full VTE Prophylaxis Plan VTE Prophylaxis will be ordered: Yes PG Care Time/CCT Total # of Minutes Spent Total Time Spent with Patient: Total time spent is greater than 50% in [facility] (as documented) at patient's floor/unit and/or counseling patient: Coding Level of Care Code 64410 Initial Inpt Care Lvl 3 Diagnoses Asthma exacerbation J45.901 Chest pain R07.9 Chest pain type: unspecified Chronic respiratory failure J96.10 Obstructive sleep apnea G47.33 Obesity hypoventilation syndrome E66.2 Pulmonary asbestosis J61 Constipation K59.00 Chronic gout [id number] GERD (gastroesophageal reflux disease) K21.9 Lower GI bleed K92.2 Coronary artery disease I25.10 Paroxysmal atrial fibrillation I48.0 Hypertension I10 DVT prophylaxis Z29.9 (1) Chest pain Chest pain type: unspecified Qualified Code(s): R07.9 - Chest pain, unspecified
[2019-12-05] MEDS ORDERED: ONDANSETRON INJ 2 MG/ML 2 ML VIAL IV PRN (12:43)
[2019-12-05] MEDS ORDERED: POLYETHYLENE (MIRALAX) 17 GM PACK PO PRN (12:43)
[2019-12-05] MEDS ORDERED: ACETAMINOPHEN 325 MG TAB PO PRN (12:43)
--- NOTE | 2019-12-05 14:31 | Emergency Department Note ---
History of Present Illness General Chief Complaint: Chest Pain Stated Complaint: Chest Pain Time Seen by Provider: 12/05/19 10:04 Source: patient and RN notes reviewed Mode of arrival: ambulatory Limitations: no limitations History of Present Illness Provider Complaint: chest pain Onset (ago): day(s) 1 Duration: progressively worsening Onset: during rest Pain Location: left chest Pain Radiation: LUE Severity: mild Maximum Pain Intensity: 4 Current Pain Intensity: 4 Quality: + tightness Relieved By: + rest Exacerbated By: + movement Associated symptoms: no nausea, no vomiting and no diaphoresis Treatments prior to arrival: none This is a 69-year-old male who presents emergency department complaining of shortness of breath. The. Patient has a history of asbestos induced asthma and reports he has been extremely short of breath over the past several days. He called the ME who sent him here to the emergency department. He denies ever being on steroids for his asthma however he does take 3 inhalers. He denies any other symptoms. Home Medications Home Medications Medication Instructions Recorded Confirmed Type albuterol sulfate [Ventolin HFA] 2 puff INHALATION QID PRN 03/30/19 12/05/19 History allopurinol [Zyloprim] 300 mg PO QAM 03/30/19 12/05/19 History atenolol [Tenormin] 50 mg PO HS 03/30/19 12/05/19 History atorvastatin [Lipitor] 40 mg PO HS 03/30/19 12/05/19 History budesonide-formoterol [Symbicort] 2 puff INHALATION BID 03/30/19 12/05/19 History furosemide [Lasix] 40 mg PO QAM 03/30/19 12/05/19 History latanoprost [Xalatan] 1 drp OPB 03/30/19 12/05/19 History lisinopril [Zestril] 20 mg PO BID 03/30/19 12/05/19 History loratadine [Claritin] 10 mg PO QAM 03/30/19 12/05/19 History nitroglycerin [Nitrostat] 0.4 mg SUBLINGUAL UD PRN 03/30/19 12/05/19 History potassium chloride [Klor-Con M20] 20 meq PO QAM 03/30/19 12/05/19 History rivaroxaban [Xarelto] 20 mg PO QDD 03/30/19 12/05/19 History tiotropium bromide [Spiriva with 1 cap INHALATION QAM 03/30/19 12/05/19 History HandiHaler] uddw-[id number]-mig-[id number]-[id number]-pec 3 tab PO TID 12/05/19 12/05/19 History [Fiber 6] omeprazole 20 mg PO QAM 12/05/19 12/05/19 History Allergies Allergy/AdvReac Type Severity Reaction Status Date / Time No Known Drug Allergies Allergy Unknown NKDA Verified 12/05/19 10:29 TIDE LAUNDRY DETERGENT Allergy Unknown RASH Uncoded 12/05/19 10:29 Past Med/Surg History Medical History Allergies Asthma Chronic gout Chronic respiratory failure Coronary artery disease Elevated blood pressure reading with diagnosis of hypertension Epistaxis GERD (gastroesophageal reflux disease) Hypertension Left knee DJD Lower GI bleed Obstructive sleep apnea Intolerant to CPAP Paroxysmal atrial fibrillation Pulmonary asbestosis Recurrent epistaxis SOBOE (shortness of breath on exertion) Surgical History History of cataract surgery b/l History of eyelid surgery History of tonsillectomy History of total knee arthroplasty Family History Other Family history non-contributory Social History Smoking Status: Former smoker Tobacco Type: Cigarettes Age Quit Using Tobacco: 39; packs per day: 2; Hx Alcohol Use: Yes Alcohol type: hard liquor Hx Substance Use: No Preferred Language: Chinese Communication Ability: Effective 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 Beliefs That Will Affect Care: None Current Living Situation: Alone current occupational status: retired Other Information That Helps Us Care for You: No Feels Safe at Home: Yes Safety Concerns: Feels Safe At This Time Review of Systems A total of 10 systems reviewed and were otherwise negative Physical Exam Vital Signs Vital Signs - 24 hr 12/05/19 09:45 12/05/19 09:47 12/05/19 09:48 Temperature 36.8 C Temperature Source Oral Pulse Rate 87 87 77 Pulse Rate from SpO2 Sensor 82 80 Respiratory Rate 17 23 18 Blood Pressure 206/103 H 206/103 H Blood Pressure Mean 136 137 Pulse Oximetry 98 97 95 Oxygen Delivery Method Nasal Cannula Nasal Cannula Nasal Cannula Oxygen Flow Rate 2 2 2 Sepsis Recent Fever Within 48 Hours No Sepsis New/Unexplained Change in Mental Status No Sepsis Action Taken by Nursing No Action Required 12/05/19 10:00 12/05/19 10:17 12/05/19 10:33 Temperature Temperature Source Pulse Rate 82 81 Pulse Rate from SpO2 Sensor 81 Respiratory Rate 19 15 Blood Pressure Blood Pressure Mean Pulse Oximetry 96 96 Oxygen Delivery Method Nasal Cannula Oxygen Flow Rate 2 Sepsis Recent Fever Within 48 Hours Sepsis New/Unexplained Change in Mental Status Sepsis Action Taken by Nursing 12/05/19 11:00 12/05/19 11:29 12/05/19 11:30 Temperature Temperature Source Pulse Rate 80 81 86 Pulse Rate from SpO2 Sensor 81 82 Respiratory Rate 19 18 18 Blood Pressure 182/99 H Blood Pressure Mean 126 Pulse Oximetry 96 96 Oxygen Delivery Method Nasal Cannula Nasal Cannula Oxygen Flow Rate 2 2 Sepsis Recent Fever Within 48 Hours Sepsis New/Unexplained Change in Mental Status Sepsis Action Taken by Nursing 12/05/19 11:31 12/05/19 11:32 12/05/19 12:00 Temperature Temperature Source Pulse Rate 82 75 Pulse Rate from SpO2 Sensor 68 Respiratory Rate 16 20 Blood Pressure 89/74 L Blood Pressure Mean 75 Pulse Oximetry 97 94 Oxygen Delivery Method Nasal Cannula Nasal Cannula Oxygen Flow Rate 2 2 Sepsis Recent Fever Within 48 Hours Sepsis New/Unexplained Change in Mental Status Sepsis Action Taken by Nursing 12/05/19 12:01 12/05/19 12:30 12/05/19 13:00 Temperature Temperature Source Pulse Rate 63 75 73 Pulse Rate from SpO2 Sensor 80 82 Respiratory Rate 19 18 18 Blood Pressure 170/87 H Blood Pressure Mean 133 Pulse Oximetry 95 93 Oxygen Delivery Method Nasal Cannula Nasal Cannula Oxygen Flow Rate 2 2 Sepsis Recent Fever Within 48 Hours Sepsis New/Unexplained Change in Mental Status Sepsis Action Taken by Nursing 12/05/19 13:30 Temperature Temperature Source Pulse Rate 71 Pulse Rate from SpO2 Sensor 75 Respiratory Rate 18 Blood Pressure Blood Pressure Mean Pulse Oximetry 95 Oxygen Delivery Method Nasal Cannula Oxygen Flow Rate 2 Sepsis Recent Fever Within 48 Hours Sepsis New/Unexplained Change in Mental Status Sepsis Action Taken by Nursing VITAL SIGNS - Vital signs and nursing notes were reviewed. GENERAL - 69-year-old male appearing stated age who is in no acute distress. Communicates well with provider and answers questions appropriately. SKIN - Without rashes. HEAD - NC/AT. EYES - PERRL with EOMI bilaterally. Sclera anicteric. Palpebral conjunctiva pin k and moist with no injection noted. EARS - No deformities of external structures noted on gross examination bilaterally. No pain elicited with palpation of the tragus bilaterally. External auditory canals without discharge or otorrhea. Tympanic membranes pearly davis without retraction or bulging. No fluid or purulent material visualized behind the TM. Handle of malleus, umbo, cone of light, pars tensa/flaccid all easily visualized. NOSE - Midline and without cyanosis. No epistaxis or purulent drainage noted. Septum midline without deviation or septal hematoma noted. MOUTH/OROPHARYNX - Without perioral cyanosis. Buccal mucosa pink and moist and without leukoplakia. Tongue midline with equal elevation of palate bilaterally. No tonsillar hypertrophy, erythema, or exudates noted. dentition noted. NECK - Neck with FROM. Supple to palpation. lymphadenopathy noted. No nuchal rigidity. LUNGS - Chest wall symmetric without accessory muscle use, intercostals retractions, or central cyanosis. Normal vesicular breath sounds CTA B/L. + wheezing NO rales, or rhonchi appreciated. CARDIAC - RRR with S1/S2. No murmur, rubs, or gallops appreciated. ABDOMEN - Abdominal contour without pulsations or visible masses. BS normoactive all four quadrants. No tenderness, palpable masses, hepato splenomegaly, or ascites noted. EXTREMITIES - No clubbing or peripheral cyanosis. No pretibial edema present. +3/5 radial, posterior tibial, and dorsalis pedis pulses palpated throughout. +5/5 strength noted in UE/LE bilaterally. NEUROLOGIC - Cranial nerves II through XII grossly intact. Sensory intact to light touch throughout. Patellar reflexes +2/4. PSYCH - A&Ox3 and cooperates fully with examiner. Pt is very pleasant and interacts well with examiner. Course Administered Medications Discontinued Medications Magnesium Sulfate/Dextrose (Magnesium Sulfate / D5w) 1 gm in 100 mls @ 100 mls/hr IV NOW STA Stop: 12/05/19 11:17 Last Infusion: 12/05/19 11:33 Dose: 0 mls/hr Documented by: [id number] Admin: 12/05/19 10:33 Dose: 100 mls/hr Documented by: [id number] Levalbuterol HCl (Levalbuterol Tartrate 15 Gm Hfa.Aer.Ad) 2 puffs INH NOW STA Stop: 12/05/19 10:18 Last Admin: 12/05/19 10:46 Dose: 2 puffs Documented by: [id number] Methylprednisolone (Methylprednisolone 125 Mg/2 Ml Vial) 125 mg IV NOW STA Stop: 12/05/19 10:18 Last Admin: 12/05/19 10:33 Dose: 125 mg Documented by: [id number] Medical Decision Making Differential Diagnosis + fracture of rib, + pneumothorax, + stable angina, + unstable angina pectoris, + atypical chest pain, + st elevation myocardial infarction, + costochondritis, + chest pain, + cardiac ischemia, + aortic dissection, + pneumonia and + pancreatitis Medical Records Attestation: I reviewed the patient's medical records. Home Medications Current Medication List: was personally reviewed by me Laboratory Data Attestation: I reviewed the patient's lab results. Result diagrams: 12/05/19 10:34 12/05/19 10:34 Labs: Lab Results 12/05/19 12/05/19 12/05/19 Range/Units 10:34 10:34 10:34 WBC 7.94 (4.8-10.8) K/uL RBC 3.38 L (4.7-6.1) M/uL Hgb 9.6 L (14.0-18.0) g/dL Hct 31.2 L (42-52) % MCV 92.3 (80-100) fL MCH 28.4 (25-34) pg MCHC 30.8 L (32-36) g/dL RDW Std Deviation 58.4 H (36.4-46.3) fL RDW Coeff of Hakeem 17.2 H (11.5-14.5) % Plt Count 280 (130-400) K/uL MPV 10.0 (7.4-10.4) fL Immature Gran % (Auto) 0.1 % Neut % (Auto) 69.8 % Lymph % (Auto) 17.8 % [place] % (Auto) 10.2 % Eos % (Auto) 2.0 % Baso % (Auto) 0.1 % Neut # (Auto) 5.54 (1.4-6.5) K/uL Lymph # (Auto) 1.41 (1.2-3.4) K/uL [place] # (Auto) 0.81 H (0.11-0.59) K/uL Eos # (Auto) 0.16 (0-0.5) K/uL Baso # (Auto) 0.01 (0-0.2) K/uL Immature Gran # (Auto) 0.01 (0.00-0.02) K/uL PT 11.4 (9.0-12.0) Seconds INR 1.1 (0.9-1.1) APTT 34.2 H (21.0-31.0) Seconds PTT Ratio 1.2 Sodium 139 (136-145) mmol/L Potassium 3.7 (3.5-5.1) mmol/L Chloride 103 (98-107) mmol/L Carbon Dioxide 29 (21-32) mmol/L Anion Gap 8.0 (3-11) BUN 13 (7-18) mg/dl Creatinine 0.90 (0.6-1.4) mg/dl Est Cr Clr Drug Dosing 95.7 ml/min Est GFR ( Amer) 100.6 Est GFR (Non-Af Amer) 86.8 BUN/Creatinine Ratio 13.9 (10-20) Glucose 114 H (70-99) mg/dl Calcium 9.4 (8.5-10.1) mg/dl Total Bilirubin 1.1 H (0.2-1) mg/dl AST 13 L (15-37) U/L ALT 18 (12-78) U/L Alkaline Phosphatase 59 (45-117) U/L Total Creatine Kinase 75 (39-308) U/L CK-MB (CK-2) < 1.0 (0.5-3.6) ng/ml CK/CKMB % Calc TNP Troponin I < 0.015 (0-0.045) ng/ml NT-Pro-B Natriuret Pep 1024 H (0-900) pg/ml Total Protein 7.2 (6.4-8.2) gm/dl Albumin 3.7 (3.4-5.0) gm/dl Globulin 3.5 (2.5-4.0) gm/dl Albumin/Globulin Ratio 1.1 (0.9-2) Lipase 97 (73-393) U/L Imaging Data Chest x-ray: Radiologist's impression: [facility] [place] [phone] XRay Report Patient: MARYJANE SANON Admit Date: 12/05/19 MR#: [id number] Address1: [address] Acct ID:[id number] Address2: Date: [address] [facility] Zip: [place] [address] Age: 69 Location: ED Sex: M Room/Bed: Att Phy: Diagnosis: Chest Pain Abigail Phy: PCP,NO Service Date: 12/05/19 [facility] Phy: Interpreting Phy: John Melendez MD Admit Phy: Ordering Phy: Ernesto Jaimes MD cc: ~ XR chest 1V portable CLINICAL HISTORY: Chest pain. COMPARISON STUDY: Chest CT December 18, 2015. Chest radiograph February 21, 2017. FINDINGS: This exam is compromised by portable technique. Cardiomegaly is unchanged. There is no evidence for pulmonary edema. No lobar consolidation is identified. The appearance of the chest is unchanged. IMPRESSION: No acute cardiopulmonary findings. Stable cardiomegaly. No significant change in appearance of the chest. ACT 112: Negative or not required by law. Electronically signed by: John Melendez M.D. 12/05/2019 10:48 AM Dictated: 12/05/19 1045 Transcribed: 12/05/19 1045 ECG Data Attestation: I personally reviewed and interpreted this ECG as follows: Indication: chest pain Rate (beats per minute): 83 Rhythm: normal sinus Findings: + ectopy (Premature Supraventricular complex); no ST depression and no ST elevation Comparison ECG Date: from (02/23/2017) Change: the following changes noted (Premature Supraventricular complex now present) MDM Narrative Patient was seen and evaluated as above in room A9B. Review was performed of nursing notes and vital signs. I did review pertinent previous visits and patient history. After obtaining a thorough history and physical examination the above work up was performed. An order was placed for continuous cardiac monitoring. The monitor shows a rate of 80 with Normal Sinus rhythm. This is a 69-year-old male who presents emergency department complaining of chest pain as well as shortness of breath. Patient does have a history of asthma. He was given Xopenex here in the emergency department and started on Solu-Medrol as well as magnesium. Because patient is requiring more oxygen I did discuss case the hospitalist service who did agree to meet the patient. Patient's hemoglobin was found to be 9.7 and I did recommend a rectal exam which the patient refused. The patient was evaluated during the global COVID-19 pandemic, and that diagnosis was suspected/considered upon their initial presentation. Their evaluation, treatment and testing was consistent with current guidelines for patients who present with complaints or symptoms that may be related to COVID- 19. Impression & Plan Pulmonary asbestosis, Asthma, Chest pain Discharge Plan Visit Data Chief Complaint: Chest Pain Stated Complaint: Chest Pain ED Provider: Ernesto Jaimes Discharge Problem: Pulmonary asbestosis, Asthma, Chest pain Forms Stand Alone Forms: My [facility] Prescriptions Prescriptions: No Action omeprazole 20 mg Tablet,Delayed Release (Dr/Ec) 20 mg PO QAM RF: 0 Fiber 6 1,000 mg Tablet 3 tab PO TID RF: 0 furosemide [Lasix] 40 mg Tablet 40 mg PO QAM RF: 0 latanoprost [Xalatan] 0.005 % Drops 1 drp OPB HS RF: 0 atorvastatin [Lipitor] 80 mg Tablet 40 mg PO HS RF: 0 lisinopril [Zestril] 20 mg Tablet 20 mg PO BID RF: 0 potassium chloride [Klor-Con M20] 20 mEq Tablet,Er Particles/Crystals 20 meq PO QAM RF: 0 nitroglycerin [Nitrostat] 0.4 mg Tablet, Sublingual 0.4 mg sublingual UD PRN (Reason: Chest Pain) RF: 0 albuterol sulfate [Ventolin HFA] 90 mcg/actuation Hfa Aerosol Inhaler 2 puff INHALATION QID PRN (Reason: Shortness Of Breath) RF: 0 loratadine [Claritin] 10 mg Tablet 10 mg PO QAM RF: 0 budesonide-formoterol [Symbicort] 160-4.5 mcg/actuation Hfa Aerosol Inhaler 2 puff INHALATION BID RF: 0 allopurinol [Zyloprim] 300 mg Tablet 300 mg PO QAM RF: 0 atenolol [Tenormin] 50 mg Tablet 50 mg PO HS RF: 0 Spiriva with HandiHaler 18 mcg Capsule, W/Inhalation Device 1 cap INHALATION QAM RF: 0 Xarelto 20 mg Tablet 20 mg PO QDD RF: 0 Discharge Problem: Asthma Qualifiers: Asthma severity: unspecified severity Asthma persistence: persistent Asthma complication type: uncomplicated Qualified Code(s): J45.909 - Unspecified asthma, uncomplicated Chest pain Qualifiers: Chest pain type: unspecified Qualified Code(s): R07.9 - Chest pain, unspecified
[2019-12-05] MEDS ORDERED: [UNRECOGNIZED DRUG - OTHER] PO SCH (16:15)
[2019-12-05] MEDS ORDERED: NITROGLYCERIN SL 0.4 MG/TAB TAB SL PRN (16:15)
[2019-12-05] MEDS ORDERED: RIVAROXABAN 20 MG TAB PO SCH (16:30)
[2019-12-05] MEDS ORDERED: HydrALAZINE HCL 20 MG/ML VIAL IV PRN (18:40)
[2019-12-05] MEDS: ALBUT/IPRATROP 3MG/0.5MG NEB 3 ML VIAL NEB SCH (19:43)
[2019-12-05] MEDS: POLYETHYLENE (MIRALAX) 17 GM PACK PO SCH (20:07)
[2019-12-05] MEDS: methylPREDNISolone 40 MG in SYRINGE 0 ML IV SCH (20:07)
[2019-12-05] MEDS: lisinopriL 20 MG TAB PO SCH (20:08)
[2019-12-05] MEDS: FLUTICASONE/VILANTEROL 200/25MCG 14 PUFFS/INHALER INH SCH (20:09)
[2019-12-05] MEDS ORDERED: ATENOLOL 50 MG TABLET PO SCH (21:00)
[2019-12-05] MEDS ORDERED: ATORVASTATIN 40 MG TAB PO SCH (21:00)
[2019-12-05] MEDS ORDERED: LATANOPROST 0.005% OP SOLN 2.5 ML BTL OPB SCH (21:00)
[2019-12-06] MEDS: FLUTICASONE/VILANTEROL 200/25MCG 14 PUFFS/INHALER INH SCH (01:54)
[2019-12-06] MEDS ORDERED: SODIUM CHLORIDE 0.65% NA SOLN 45 ML (OCEAN) ONE (03:45)
--- NOTE | 2019-12-06 05:31 | Electrocardiogram Report ---
Test Reason : Blood Pressure : / mmHG Vent. Rate : 083 BPM Atrial Rate : 083 BPM P-R Int : 120 ms QRS Dur : 078 ms QT Int : 408 ms P-R-T Axes : 064 -13 006 degrees QTc Int : 479 ms Poor data quality, interpretation may be adversely affected Sinus rhythm with Premature supraventricular complexes Low voltage QRS Borderline ECG When compared with ECG of 23-FEB-2017 06:23, Premature supraventricular complexes are now Present Confirmed by Al Harley [id number]) on 12/06/2019 5:31:14 AM Referred By: Confirmed By:Al Harley
[2019-12-06] MEDS: ALBUT/IPRATROP 3MG/0.5MG NEB 3 ML VIAL NEB SCH ×2 (07:29→11:07)
[2019-12-06 08:21] LABS: Hematocrit (blood only) 32.9 % (42-52); Immature Granulocytes # (auto) 0.01 K/uL (0.00-0.02); Immature Granulocytes % (auto) 0.1 %; Lymphocytes # (auto) 1.11 K/uL (1.2-3.4); Lymphocytes % (auto) 10.7 %; Mean Corpuscular Hemoglobin 28.1 pg (25-34); Mean Corpuscular Hgb Conc 30.4 g/dL (32-36); Mean Corpuscular Volume 92.4 fL (80-100); Mean Platelet Volume 10.7 fL (7.4-10.4); Monocytes # (auto) 0.36 K/uL (0.11-0.59); Monocytes % (auto) 3.5 %; Neutrophils # (auto) 8.86 K/uL (1.4-6.5); Neutrophils % (auto) 85.7 %; Platelet Count 302 K/uL (130-400); RDW Coefficient of Variation 17.2 % (11.5-14.5); Red Blood Count 3.56 M/uL (4.7-6.1); White Blood Count 10.34 K/uL (4.8-10.8)
[2019-12-06] MEDS: lisinopriL 20 MG TAB PO SCH (08:50)
[2019-12-06 08:52] LABS: BUN Creatinine Ratio 17.8 (10-20); Calcium 10.1 mg/dl (8.5-10.1); Creatinine Clr Calc Pharmacy 91.3 ml/min; Est GFR (African American) 101.6; Est GFR (Non-African American) 87.6; Potassium 4.5 mmol/L (3.5-5.1)
[2019-12-06] MEDS: POLYETHYLENE (MIRALAX) 17 GM PACK PO SCH (08:54)
[2019-12-06] MEDS: methylPREDNISolone 40 MG in SYRINGE 0 ML IV SCH (08:54)
[2019-12-06] MEDS ORDERED: LORATADINE 10 MG TAB PO SCH (09:00)
[2019-12-06] MEDS ORDERED: FUROSEMIDE 40 MG TAB PO SCH (09:00)
[2019-12-06] MEDS ORDERED: UMECLIDINIUM BROMIDE 62.5MCG/BLISTER 7 PUFFS/INHALER INH SCH (09:00)
[2019-12-06] MEDS ORDERED: PANTOprazole 40 MG TAB PO SCH (09:00)
[2019-12-06] MEDS ORDERED: allopurinoL 300 MG TAB PO SCH (09:00)
[2019-12-06] MEDS ORDERED: POTASSIUM CHLORIDE 20 MEQ TABCR PO SCH (09:00)
--- NOTE | 2019-12-14 12:29 | Discharge Summary ---
Date of Service December 06, 2019 Admission HPI Per Admitting Provider Simone Thompson is a 69-year-old male who presents to the ER with chest pain and shortness of breath. [facility] are available on [facility]. The patient reports having a chronic cough due to asbestosis with pleural plaques however this is been worse in the last 3 days. He is coughing up more yellow phlegm. Associated substernal chest pain, no worse today than the last 3 days, associated with coughing and exertion. Since his chest pain continued with coughing [facility] and [facility] going to [facility] for further evaluation. He denies any palpitations, orthopnea, PND. He feels the nebulizers significantly help his shortness of breath. He has a remote history of coronary artery disease requiring a stent to assist in fusion 12 years ago. He has significant shortness of breath on exertion but not usually any chest pain on exertion. He is anemic but reports recent admission to [facility] due to a lower GI bleed (suspected hemorrhoids vs diverticular bleed) and his hemoglobin appears to be stable from that admission. Principal Diagnosis Asthma exacerbation Discharge Exam Constitutional: well developed and + morbidly obese; no acute distress Eyes: + anicteric sclerae; normal pupil size Neck: trachea midline, + short neck and + thick neck Respiratory: normal respiratory effort and + cough; no respiratory distress, no retractions, does not use accessory muscles and + not able to speak in complete sentence Auscultation: + diminished lung sounds (bibasal) Cardiovascular: Rate/Rhythm: regular rate and regular rhythm Heart Sounds: no murmur Extremities: normal capillary refill and + pedal edema (1+ b/l equal to knees); no calf tenderness Gastrointestinal (Abdomen): normal bowel sounds, soft, nontender, no hepatosplenomegaly Musculoskeletal: no cyanosis or clubbing, extremities motor strength 5/5 Skin: no rashes, warm and dry (venous stasis changes of lower extremities) Neurologic: moves all extremities and awake; not confused Psychiatric: A+Ox3, euthymic affect Genitourinary: no CVA tenderness Discharge Data Allergies Allergy/AdvReac Type Severity Reaction Status Date / Time No Known Drug Allergies Allergy Unknown NKDA Verified 12/05/19 10:29 TIDE LAUNDRY DETERGENT Allergy Unknown RASH Uncoded 12/05/19 10:29 Consultations 12/05/19 11:27 ED Decision to Admit Stat Hospital Course (1) Asthma exacerbation: Suspect this is the cause of his increased coughing No fever, chills, chest x-ray findings, lab abnormalities or COVID-19 exposure - no swab to be performed Methylprednisolone 125 mg IV given in ER, continue 40mg IV BID Duonebs QID + PRN Continue his regular inhalers or hospital formulary equivalent on Spiriva and Symbicort. Patient improved on following day, will discharge on azithromycin and prednisone. (2) Chest pain: Appears to be musculoskeletal. She is going on for 3 days with negative troponin this is not ACS. Unlikely angina given reproducibility on palpation however if it continues to be exertional in nature could consider a stress test. Steroids for bronchitis and asthma exacerbation should help with costochondritis pain Troponin negative on admission and no change in his pain in the last 3 days therefore no need to repeat unless clinical change. (3) Chronic respiratory failure: On baseline O2 2L Aim O2 sats > 90% (4) Obstructive sleep apnea: Intolerant to CPAP - likely contributing towards chronic respiratory failure and hypertension (5) Obesity hypoventilation syndrome: Suspected. Likely contributing towards overal poor respiratory status. (6) Pulmonary asbestosis: Unclear history of this but he reports causes his chronic cough. (7) Constipation: Suspect may be contributing towards his GI bleed and poor respiratory status contributing towards his restrictive lung disease. (8) Chronic gout: Continue allopurinol 300mg PO daily (9) GERD (gastroesophageal reflux disease): HOB elevated > 30 degrees Switch omeprazole for pantoprazole as per hospital formulary (10) Lower GI bleed: Recent history of this. Trend Hgb especially with recurrence of consti pation. Iron saturation with AM labs to assess possible benefit of IV iron. (11) Coronary artery disease: Known history of this with remote history of stent. On no antiplatelet for this but does take Xarelto. Continue atenolol, lisinopril and atorvastatin (12) Paroxysmal atrial fibrillation: Currently in NSR. Continue atenolol for rate control. Anticoagulation with Xarelto. Monitor on telemetry. (13) Hypertension: Continue his usual atenolol, lisinopril, lasix. Significantly elevated in ER although patient does note history of white coat hypertension and runs higher in the hospital than at home. Will add hydralazine 5mg IV PRN for sBP > 180. (14) DVT prophylaxis: Continue his usual Xarelto Total Time Total Time Spent Total Time Spent (In Minutes): 31 Total Time Includes: Examination of the Patient, Discharge Planning and Medication Reconciliation Discharge Plan Discharge Items Patient Disposition: Home - Self-Care Reason For Visit: CHEST PAIN, BRONCHITIS Discharge Diagnosis: bronchitis Activity: Resume your previous activity Non-emergency contact: Primary Care Provider Call non-emergency contact if: you have any medication questions Follow-up/Referrals: PCP,NO [Primary Care Provider] - Diet: Regular Addtl Attending Provider Instructions: You have been hospitalized for an acute medical problem. During your stay at [facility], we have made an effort to correct the problem that brought you to the hospital while keeping you as comfortable as possible. Medications were used to bring your condition under control and your discharge instructions will include directions for any medications you should take after leaving the hospital. Please make sure you see your Primary Care Provider as part of your follow up plan. Pending Studies at Discharge: No Stand-Alone Forms: [facility], Smoking Cessation Medications and DC Order Prescriptions: New prednisone 10 mg tablet 10 mg PO DAILY Qty: 20 RF: 0 azithromycin 250 mg tablet See Rx Instructions .ROUTE .COMPLEX Qty: 6 RF: 0 Continued omeprazole 20 mg Tablet,Delayed Release (Dr/Ec) 20 mg PO QAM RF: 0 Fiber 6 1,000 mg Tablet 3 tab PO TID RF: 0 furosemide [Lasix] 40 mg Tablet 40 mg PO QAM RF: 0 latanoprost [Xalatan] 0.005 % Drops 1 drp OPB HS RF: 0 atorvastatin [Lipitor] 80 mg Tablet 40 mg PO HS RF: 0 lisinopril [Zestril] 20 mg Tablet 20 mg PO BID RF: 0 potassium chloride [Klor-Con M20] 20 mEq Tablet,Er Particles/Crystals 20 meq PO QAM RF: 0 nitroglycerin [Nitrostat] 0.4 mg Tablet, Sublingual 0.4 mg sublingual UD PRN (Reason: Chest Pain) RF: 0 albuterol sulfate [Ventolin HFA] 90 mcg/actuation Hfa Aerosol Inhaler 2 puff INHALATION QID PRN (Reason: Shortness Of Breath) RF: 0 loratadine [Claritin] 10 mg Tablet 10 mg PO QAM RF: 0 budesonide-formoterol [Symbicort] 160-4.5 mcg/actuation Hfa Aerosol Inhaler 2 puff INHALATION BID RF: 0 allopurinol [Zyloprim] 300 mg Tablet 300 mg PO QAM RF: 0 atenolol [Tenormin] 50 mg Tablet 50 mg PO HS RF: 0 Spiriva with HandiHaler 18 mcg Capsule, W/Inhalation Device 1 cap INHALATION QAM RF: 0 Xarelto 20 mg Tablet 20 mg PO QDD RF: 0 Discharge Orders: Discharge Order (Routine); Ordered 12/06/19 Ordered By: Shadi Mejia Admission Data Admit Date/Time: 12/05/19 12:43 Attending Provider: Shadi Mejia Admit Provider: Mario Moore Primary Care Provider: PCP,NO Other Providers: Mario Moore Other Interventions: Discharge Summary Assessment (RN) Last Done: 12/06/19 14:18 Coding Level of Care Code 29002 OBS Care - Discharge Diagnoses Asthma exacerbation J45.901 Chest pain R07.9 Chest pain type: unspecified Chronic respiratory failure J96.10 Obstructive sleep apnea G47.33 Obesity hypoventilation syndrome E66.2 Pulmonary asbestosis J61 Constipation K59.00 Chronic gout [id number] GERD (gastroesophageal reflux disease) K21.9 Lower GI bleed K92.2 Coronary artery disease I25.10 Paroxysmal atrial fibrillation I48.0 Hypertension I10 DVT prophylaxis Z29.9
== END 2019-12-06 15:10 | disposition home or self-care (01) ==
LOC: 2N 09:39 → ED 09:39 → SUATTDRO 12:43 → 2N 15:27

== ENCOUNTER 2020-11-11 00:03 | Inpatient (IN) ==
[2020-11-11] MEDS ORDERED: fentaNYL citrate 100 MCG/2 ML VIAL IV STA (00:31)
[2020-11-11] MEDS ORDERED: METOPROLOL TARTRATE 1 MG/ML VIAL IV STA ×2 (00:31→01:13)
--- NOTE | 2020-11-11 00:38 | Emergency Department Note ---
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 This improved and then went to bed and awoke around 11 PM with severe crushing central chest discomfort. Denies significant worsening of shortness of breath peer denies nausea or abdominal discomfort. No trauma reported. States he had a gout attack recently in his right foot that improved but otherwise no significant leg swelling. Denies a history of similar lower GI bleed, and CAD with stents patient states has been compliant with her medications including his Xarelto which he takes for A. fib. Patient states he is immunized for Covid. Denies recent stress test and states his cardiac care is at the [facility]. History of GI bleed and is no longer on aspirin. Pain not worse with movement or deep breath. Took nitro x2 at home wi thout improvement of symptoms. Describes 7 out of 10 pain currently was 8 out of 10 earlier. Given aspirin by EMS. REVIEW OF SYSTEMS: A total of 10 review of systems was obtained and negative except as stated above in the HPI. PAST MEDICAL HISTORY: As noted above MEDICATIONS: Reviewed home medications with the patient SOCIAL HISTORY: Former smoker, lives at home PHYSICAL EXAM: GENERAL: alert and oriented seated on stretcher Head: normocephalic and atraumatic EYES: No injection, discharge or icterus. NECK: Trachea midline. Supple. ENT: Mucous membranes pink and moist. LUNGS: Airway patent. No retractions. Breath sounds generally diminished on nasal cannula oxygen. HEART: Irregularly irregular and tachycardic rate and rhythm. Minimal chest wall tenderness ABDOMEN: Soft and non-tender, without guarding or rebound. SKIN: Acyanotic, warm, dry EXTREMITIES: Without deformity and minimal bilateral pedal swelling. NEUROLOGICAL: No focal deficits. No aphasia. No facial droop or slurred speech. EK bpm atrial fibrillation with rapid ventricular sponsor. Some mild diffuse ST segment depression but no ST elevation. QTc 544. CONTINUOUS CARDIAC MONITORING: was ordered and showed a heart rate of 70s-120s bpm in atrial fibrillation 1 view chest x-ray per my interpretation with cardiomegaly but no evidence of pneumothorax or clear pneumonia. No large effusion noted. Patient's laboratory studies and imaging reviewed. Differential includes Cardiac ischemia, aortic dissection, pulmonary embolism, pneumothorax, pneumonia, pericarditis, myocarditis, esophageal rupture, GERD, cholecystitis, pancreatitis, musculoskeletal, as well as other pathologies. IMPRESSION/MEDICAL DECISION MAKING: Patient with onset of chest discomfort. Anticoagulated A. fib. and in RVR . N itro at home without improvement. Question cardiac etiology given his underlying history. Given some fentanyl for his pain with some improvement. Very minimal reproducible chest wall pain. Anticoagulated and I doubt this represents PE. No severe hypertension and lower suspicion at this time for aortic dissection. Is on Xarelto and states compliance. Given aspirin earlier. No significant evidence of fluid overload. Patient with episodes of A. fib RVR given several doses of metoprolol IV here to work on rate control. Patient already anticoagulated. Moderate risk heart score. Initial troponin negative but short onset of pain and may just be early. Do not see clear evidence of pneumonia on chest x-ray. Question underlying ACS versus some demand related pain due to the RVR and given his risk factors feel further observation here in the hospital is warranted. The patient was in agreement. Hospitalist contacted. Magnesium and potassium supplementation ordered. DIAGNOSIS: A. fib RVR, chest pain, hypomagnesemia DISPOSITION: Being evaluated by the hospitalist Patient was agreeable with this plan. Critical Care I have personally spent 31 minutes of critical care time in the direct management of this patient. This includes bedside care, interpretation of diagnostic studies, and testing, discussion with consultants, patient, and other required patient management activities. These 31 minutes is in excess of all separately billable procedures. Past Med/Surg History Medical History (Updated 11/11/20 @ 03:10 by Levi Oviedo M.D.) Allergies Asthma Chest pain Chronic respiratory failure Coronary artery disease Elevated blood pressure reading with diagnosis of hypertension Epistaxis GERD (gastroesophageal reflux disease) Hypertension Left knee DJD Lower GI bleed Obstructive sleep apnea Intolerant to CPAP Paroxysmal atrial fibrillation Pulmonary asbestosis Recurrent epistaxis SOBOE (shortness of breath on exertion) Surgical History History of cataract surgery b/l History of eyelid surgery History of tonsillectomy History of total knee arthroplasty Family History Other Family history non-contributory Social History Smoking Status: Former smoker Tobacco Type: Cigarettes Age Quit Using Tobacco: 39; packs per day: 2; Hx Alcohol Use: Yes Alcohol type: hard liquor Hx Substance Use: No Preferred Language: Czech Communication Ability: Effective Director [employer] Required: No Beliefs That Will Affect Care: None Current Living Situation: Alone current occupational status: retired Feels Safe at Home: Yes Assistive Devices: Cane, Glasses and Oxygen - Continuous Allergies Allergies Allergy/AdvReac Type Severity Reaction Status Date / Time No Known Drug Allergies Allergy Unknown NKDA Verified 11/11/20 00:16 TIDE LAUNDRY DETERGENT Allergy Unknown RASH Uncoded 11/11/20 00:16 Home Meds Home Medications Medication Instructions Recorded Confirmed albuterol sulfate 90 mcg/actuation 2 puff INHALATION QID PRN 03/30/19 11/11/20 aerosol inhaler (Ventolin HFA) atorvastatin 80 mg tablet (Lipitor) 40 mg PO HS 03/30/19 11/11/20 budesonide-formoterol HFA 160 2 puff INHALATION BID 03/30/19 11/11/20 mcg-4.5 mcg/actuation aerosol inhaler (Symbicort) furosemide 40 mg tablet (Lasix) 40 mg PO QAM 03/30/19 11/11/20 latanoprost 0.005 % eye drops 1 drp OPB HS 03/30/19 11/11/20 (Xalatan) lisinopril 20 mg tablet (Zestril) 20 mg PO BID 03/30/19 11/11/20 loratadine 10 mg tablet (Claritin) 10 mg PO QAM 03/30/19 11/11/20 nitroglycerin 0.4 mg sublingual 0.4 mg SUBLINGUAL UD PRN 03/30/19 11/11/20 tablet (Nitrostat) potassium chloride 20 mEq 20 meq PO QAM 03/30/19 11/11/20 tablet,extended release(part/cryst) (Klor-Con M) rivaroxaban 20 mg tablet (Xarelto) 20 mg PO QDD 03/30/19 11/11/20 tiotropium bromide 18 mcg capsule 1 cap INHALATION QAM 03/30/19 11/11/20 with inhalation device (Spiriva with HandiHaler) rjls-dyf-oytfx-gqptkjrdp-lgvishqc-vlsp-pectin 3 tab PO TID 12/05/19 11/11/20 1,000 mg tablet (Fiber 6) omeprazole 20 mg tablet,delayed 20 mg PO QAM 12/05/19 11/11/20 release allopurinol 300 mg tablet 300 mg PO QAM 11/11/20 11/11/20 brimonidine 1 drp OPB BID 11/11/20 11/11/20 carvedilol 6.25 mg tablet 0 mg PO BID 11/11/20 11/11/20 Previous Rx's Medication Instructions Recorded oxycodone 5 mg tablet 2.5 mg PO Q12H PRN #5 tab 11/02/20 prednisone 10 mg tablet See Rx Instructions .ROUTE 11/02/20 .COMPLEX #19 tab Results & Data (ED) Vital Signs Vital Signs - 24 hr 11/10/20 23:56 11/11/20 00:32 11/11/20 00:48 Temperature 37 C Temperature Source Oral Pulse Rate 93 H 122 H Pulse Rate [Apical] Respiratory Rate 26 H Blood Pressure 133/81 133/81 Blood Pressure [Left Arm] Blood Pressure Mean 98 Blood Pressure Mean [Left Arm] Pulse Oximetry 96 Oxygen Delivery Method Nasal Cannula Nasal Cannula Oxygen Flow Rate 2 2 Sepsis Recent Fever Within 48 Hours No Sepsis New/Unexplained Change in Mental Status No Sepsis Action Taken by Nursing No Action Required 11/11/20 01:43 11/11/20 02:12 Temperature Temperature Source Pulse Rate 123 H Pulse Rate [Apical] 101 H Respiratory Rate 20 Blood Pressure 161/99 H Blood Pressure [Left Arm] 145/98 H Blood Pressure Mean Blood Pressure Mean [Left Arm] 113 Pulse Oximetry Oxygen Delivery Method Nasal Cannula Oxygen Flow Rate 2 Sepsis Recent Fever Within 48 Hours Sepsis New/Unexplained Change in Mental Status Sepsis Action Taken by Nursing Laboratory Data Result diagrams: 11/11/20 00:18 11/11/20 00:18 Lab Results 11/11/20 11/11/20 11/11/20 Range/Units 00:18 00:18 00:18 WBC 11.40 H (4.8-10.8) K/uL RBC 3.60 L (4.7-6.1) M/uL Hgb 12.4 L (14.0-18.0) g/dL Hct 37.3 L (42-52) % MCV 103.6 H (80-100) fL MCH 34.4 H (25-34) pg MCHC 33.2 (32-36) g/dL RDW Std Deviation 53.4 H (36.4-46.3) fL RDW Coeff of Hakeem 14.1 (11.5-14.5) % Plt Count 244 (130-400) K/uL MPV 9.4 (7.4-10.4) fL Immature Gran % (Auto) 0.4 % Neut % (Auto) 74.6 % Lymph % (Auto) 16.3 % [place] % (Auto) 7.9 % Eos % (Auto) 0.8 % Baso % (Auto) 0.0 % Neut # (Auto) 8.50 H (1.4-6.5) K/uL Lymph # (Auto) 1.86 (1.2-3.4) K/uL [place] # (Auto) 0.90 H (0.11-0.59) K/uL Eos # (Auto) 0.09 (0-0.5) K/uL Baso # (Auto) 0.00 (0-0.2) K/uL Immature Gran # (Auto) 0.05 H (0.00-0.02) K/uL PT 12.5 H (9.0-12.0) Seconds INR 1.3 H (0.9-1.1) APTT 34.7 H (21.0-31.0) Seconds PTT Ratio 1.3 Sodium 141 (136-145) mmol/L Potassium 3.3 L (3.5-5.1) mmol/L Chloride 105 (98-107) mmol/L Carbon Dioxide 32 (21-32) mmol/L Anion Gap 4.0 (3-11) BUN 13 (7-18) mg/dl Creatinine 0.67 (0.6-1.4) mg/dl Est Cr Clr Drug Dosing 136.5 ml/min Est GFR ( Amer) 112.8 ml/min Est GFR (Non-Af Amer) 97.4 ml/min BUN/Creatinine Ratio 19.4 (10-20) Glucose 124 H (70-99) mg/dl Calcium 8.5 (8.5-10.1) mg/dl Magnesium 1.4 L (1.8-2.4) mg/dl Total Bilirubin 0.6 (0.2-1) mg/dl AST 15 (15-37) U/L ALT 29 (12-78) U/L Alkaline Phosphatase 44 L (45-117) U/L Troponin I < 0.015 (0-0.045) ng/ml Total Protein 6.1 L (6.4-8.2) gm/dl Albumin 3.1 L (3.4-5.0) gm/dl Globulin 3.0 (2.5-4.0) gm/dl Albumin/Globulin Ratio 1.0 (0.9-2) Lipase 134 (73-393) U/L COVID-19 Eval Order 11/11/20 Range/Units 01:43 WBC (4.8-10.8) K/uL RBC (4.7-6.1) M/uL Hgb (14.0-18.0) g/dL Hct (42-52) % MCV (80-100) fL MCH (25-34) pg MCHC (32-36) g/dL RDW Std Deviation (36.4-46.3) fL RDW Coeff of Hakeem (11.5-14.5) % Plt Count (130-400) K/uL MPV (7.4-10.4) fL Immature Gran % (Auto) % Neut % (Auto) % Lymph % (Auto) % [place] % (Auto) % Eos % (Auto) % Baso % (Auto) % Neut # (Auto) (1.4-6.5) K/uL Lymph # (Auto) (1.2-3.4) K/uL [place] # (Auto) (0.11-0.59) K/uL Eos # (Auto) (0-0.5) K/uL Baso # (Auto) (0-0.2) K/uL Immature Gran # (Auto) (0.00-0.02) K/uL PT (9.0-12.0) Seconds INR (0.9-1.1) APTT (21.0-31.0) Seconds PTT Ratio Sodium (136-145) mmol/L Potassium (3.5-5.1) mmol/L Chloride (98-107) mmol/L Carbon Dioxide (21-32) mmol/L Anion Gap (3-11) BUN (7-18) mg/dl Creatinine (0.6-1.4) mg/dl Est Cr Clr Drug Dosing ml/min Est GFR ( Amer) ml/min Est GFR (Non-Af Amer) ml/min BUN/Creatinine Ratio (10-20) Glucose (70-99) mg/dl Calcium (8.5-10.1) mg/dl Magnesium (1.8-2.4) mg/dl Total Bilirubin (0.2-1) mg/dl AST (15-37) U/L ALT (12-78) U/L Alkaline Phosphatase (45-117) U/L Troponin I (0-0.045) ng/ml Total Protein (6.4-8.2) gm/dl Albumin (3.4-5.0) gm/dl Globulin (2.5-4.0) gm/dl Albumin/Globulin Ratio (0.9-2) Lipase (73-393) U/L COVID-19 Eval Order Covid19 at [facility] Administered Medications Potassium Chloride (K Ace / Wtr) 10 meq in 100 mls @ 100 mls/hr IV Q1H [facility] Stop: 11/11/20 03:44 Last Admin: 11/11/20 01:55 Dose: 100 mls/hr Documented by: [id number] Discontinued Medications Carvedilol (Carvedilol 12.5 Mg Tab) Confirm Administered Dose 12.5 mg .ROUTE .STK-MED ONE Stop: 11/11/20 02:34 Last Admin: 11/11/20 02:35 Dose: 12.5 mg Documented by: [id number] Fentanyl Citrate (Fentanyl Citrate 100 Mcg/2 Ml Vial) 50 mcg IV NOW STA Stop: 11/11/20 00:32 Last Admin: 11/11/20 00:47 Dose: 50 mcg Documented by: Magnesium Sulfate/Dextrose (Magnesium Sulfate / D5w) 1 gm in 100 mls @ 200 mls/hr IV Q30M [facility] Stop: 11/11/20 02:44 Last Admin: 11/11/20 02:25 Dose: 200 mls/hr Documented by: [id number] Infusion: 11/11/20 02:25 Dose: 200 mls/hr Documented by: [id number] Admin: 11/11/20 01:55 Dose: 200 mls/hr Documented by: [id number] Metoprolol Tartrate (Metoprolol Tartrate 1 Mg/Ml Vial) 5 mg IV NOW STA Stop: 11/11/20 00:32 Last Admin: 11/11/20 00:48 Dose: 5 mg Documented by: [id number] Metoprolol Tartrate (Metoprolol Tartrate 1 Mg/Ml Vial) 5 mg IV NOW STA Stop: 11/11/20 01:14 Last Admin: 11/11/20 01:43 Dose: 5 mg Documented by: [id number] Morphine Sulfate (Morphine Sulfate 2 Mg/Ml Carp) Confirm Administered Dose 2 mg .ROUTE .STK-MED ONE Stop: 11/11/20 02:33 Last Admin: 11/11/20 02:35 Dose: 2 mg Documented by: [id number] Potassium Chloride (Potassium Chloride Crtab 20 Meq Tabcr) 40 meq PO NOW STA Stop: 11/11/20 01:40 Last Admin: 11/11/20 01:54 Dose: 40 meq Documented by: [id number] Discharge Plan Visit Data Chief Complaint: Chest Pain Stated Complaint: CHEST PAIN/SHORT OF BREATH ED Provider: Levi Oviedo Discharge Problem: Atrial fibrillation with rapid ventricular response, Chest pain, Hypomagnesemia Patient Disposition: Being Evaluated by Hospitalist Forms Stand Alone Forms: [facility] Prescriptions Prescriptions: No Action omeprazole 20 mg Tablet,Delayed Release (Dr/Ec) 20 mg PO QAM RF: 0 Fiber 6 1,000 mg Tablet 3 tab PO TID RF: 0 furosemide [Lasix] 40 mg Tablet 40 mg PO QAM RF: 0 latanoprost [Xalatan] 0.005 % Drops 1 drp OPB HS RF: 0 atorvastatin [Lipitor] 80 mg Tablet 40 mg PO HS RF: 0 lisinopril [Zestril] 20 mg Tablet 20 mg PO BID RF: 0 potassium chloride [Klor-Con M20] 20 mEq Tablet,Er Particles/Crystals 20 meq PO QAM RF: 0 nitroglycerin [Nitrostat] 0.4 mg Tablet, Sublingual 0.4 mg sublingual UD PRN (Reason: Chest Pain) RF: 0 albuterol sulfate [Ventolin HFA] 90 mcg/actuation Hfa Aerosol Inhaler 2 puff INHALATION QID PRN (Reason: Shortness Of Breath) RF: 0 loratadine [Claritin] 10 mg Tablet 10 mg PO QAM RF: 0 budesonide-formoterol [Symbicort] 160-4.5 mcg/actuation Hfa Aerosol Inhaler 2 puff INHALATION BID RF: 0 Spiriva with HandiHaler 18 mcg Capsule, W/Inhalation Device 1 cap INHALATION QAM RF: 0 Xarelto 20 mg Tablet 20 mg PO QDD RF: 0 prednisone 10 mg tablet See Rx Instructions .ROUTE .COMPLEX Qty: 19 RF: 0 oxycodone 5 mg tablet 2.5 mg PO Q12H PRN (Reason: pain) Qty: 5 RF: 0 allopurinol 300 mg Tablet 300 mg PO QAM RF: 0 carvedilol 6.25 mg Tablet 0 mg PO BID RF: 0 brimonidine 1 drp OPB BID RF: 0 Referrals Referrals: PCP,NO [Primary Care Provider] - Discharge Problem: Chest pain Qualifiers: Chest pain type: unspecified Qualified Code(s): R07.9 - Chest pain, unspecified
[2020-11-11 00:40] LABS: Eosinophils # (auto) 0.09 K/uL (0-0.5); Eosinophils % (auto) 0.8 %; Hematocrit (blood only) 37.3 % (42-52); Hemoglobin 12.4 g/dL (14.0-18.0); Immature Granulocytes # (auto) 0.05 K/uL (0.00-0.02); Immature Granulocytes % (auto) 0.4 %; Lymphocytes # (auto) 1.86 K/uL (1.2-3.4); Lymphocytes % (auto) 16.3 %; Mean Corpuscular Hemoglobin 34.4 pg (25-34); Mean Corpuscular Hgb Conc 33.2 g/dL (32-36); Mean Corpuscular Volume 103.6 fL (80-100); Mean Platelet Volume 9.4 fL (7.4-10.4); Monocytes % (auto) 7.9 %; Neutrophils % (auto) 74.6 %; Platelet Count 244 K/uL (130-400); RDW Coefficient of Variation 14.1 % (11.5-14.5); RDW Standard Deviation 53.4 fL (36.4-46.3)
[2020-11-11 00:52] LABS: INR 1.3 (0.9-1.1); Partial Thromboplastin Ratio 1.3; Partial Thromboplastin Time 34.7 Seconds (21.0-31.0); Prothrombin Time 12.5 Seconds (9.0-12.0)
[2020-11-11 00:58] LABS: Alanine Aminotransferase 29 U/L (12-78); Albumin Level 3.1 gm/dl (3.4-5.0); Aspartate Aminotransferase 15 U/L (15-37); BUN Creatinine Ratio 19.4 (10-20); Blood Urea Nitrogen 13 mg/dl (7-18); Calcium 8.5 mg/dl (8.5-10.1); Carbon Dioxide 32 mmol/L (21-32); Chloride 105 mmol/L (98-107); Creatinine Clr Calc Pharmacy 136.5 ml/min; Est GFR (African American) 112.8 ml/min; Est GFR (Non-African American) 97.4 ml/min; Glucose 124 mg/dl (70-99); Lipase 134 U/L (73-393); Potassium 3.3 mmol/L (3.5-5.1); Sodium 141 mmol/L (136-145)
[2020-11-11 01:03] LABS: Alkaline Phosphatase 44 U/L (45-117); Bilirubin,Total 0.6 mg/dl (0.2-1); Total Protein 6.1 gm/dl (6.4-8.2); Troponin I < 0.015 ng/ml (0-0.045)
[2020-11-11 01:38] LABS: Magnesium 1.4 mg/dl (1.8-2.4)
[2020-11-11] MEDS ORDERED: POTASSIUM CHLORIDE CRTAB 20 MEQ TABCR PO STA (01:39)
[2020-11-11] MEDS: POTASSIUM CHLORIDE / WTR 10 MEQ/100 ML PLCT IV SCH ×2 (01:55→10:25)
[2020-11-11] MEDS: MAGNESIUM SULFATE / D5W 1 GM/100 ML BAG IV SCH ×2 (01:55→02:25)
[2020-11-11] MEDS ORDERED: MoRPHine SULFATE 2 MG/ML CARP IV STA (02:27)
[2020-11-11] MEDS ORDERED: MoRPHine SULFATE 2 MG/ML CARP ONE (02:32)
[2020-11-11] MEDS ORDERED: carvediloL 12.5 MG TAB ONE (02:33)
--- NOTE | 2020-11-11 02:38 | History & Physical Report ---
Date of Service November 11, 2020 Assessment & Plan (1) Atrial fibrillation with rapid ventricular response: Plan: Atrial fibrillation with RVR/CAD/hypertension/paroxysmal A. fib history- Magnesium 1.4, potassium 3.3. Both optimized with IV and oral replacement, repeat laboratories in a.m. Increase carvedilol from 3.125 mg p.o. twice daily to 12.5 mg p.o. twice daily. Decrease lisinopril from 20 mg p.o. twice daily to 10 mg p.o. twice daily Continue Xarelto. Increase Klor-Con from 20 to 40 mEq every morning Hold furosemide Lopressor 5 mg IV every 4 hours as needed heart rate greater than 110 Consult cardiology (2) Gout: Plan: Continue allopurinol (3) Obesity hypoventilation syndrome: Plan: Obesity hypoventilation syndrome/COPD/asthma- Continue Symbicort and Spiriva (4) GERD (gastroesophageal reflux disease): Plan: Continue omeprazole (5) Asthma: Plan: See above (6) Obstructive sleep apnea: Plan: CPAP at bedtime as needed (7) Coronary artery disease: Plan: See above (8) Hypertension: Plan: See above (9) Paroxysmal atrial fibrillation: Plan: See above History of Present Illness Chief Complaint: The patient presents to the emergency department with complaint of chest pain that occurred while at rest around 7 PM this evening that formerly [facility] ed. After having gone to bed, recurred around 11 PM, with more severe crushing central chest discomfort. In the emergency department, he was found to be in atrial fibrillation with RVR. He was prescribed by the emergency department Lopressor 5 mg IV x2, with improvement in heart rate from the 120s down to the 110s. Patient had further improvement in his heart rate, with additional Lopressor 5 mg IV x1, replacement of magnesium sulfate IV, and potassium chloride both orally and IV. Pertinent laboratories: An easy 1.4, potassium 3.3, glucose 124 Primary Care Provider: NO PCP The patient is a 70-year-old male with a past medical history including paroxysmal atrial fibrillation, obesity hypoventilation syndrome, asthma, GERD, obstructive sleep apnea, lower GI bleed, CAD, pulmonary asbestosis, hypertension, dyspnea on exertion and left knee DJD. He presents with symptoms as noted above, in response to interventions in the ED as noted above. Patient did also receive a single dose of morphine 2 mg IV while in the ED. Allergies Allergy/AdvReac Type Severity Reaction Status Date / Time No Known Drug Allergies Allergy Unknown NKDA Verified 11/11/20 00:16 TIDE LAUNDRY DETERGENT Allergy Unknown RASH Uncoded 11/11/20 00:16 Home Medications Medication Instructions Recorded Confirmed Type albuterol sulfate 90 mcg/actuation 2 puff INHALATION QID PRN 03/30/19 11/11/20 History aerosol inhaler (Ventolin HFA) atorvastatin 80 mg tablet (Lipitor) 40 mg PO HS 03/30/19 11/11/20 History budesonide-formoterol HFA 160 2 puff INHALATION BID 03/30/19 11/11/20 History mcg-4.5 mcg/actuation aerosol inhaler (Symbicort) furosemide 40 mg tablet (Lasix) 40 mg PO QAM 03/30/19 11/11/20 History latanoprost 0.005 % eye drops 1 drp OPB HS 03/30/19 11/11/20 History (Xalatan) lisinopril 20 mg tablet (Zestril) 20 mg PO BID 03/30/19 11/11/20 History loratadine 10 mg tablet (Claritin) 10 mg PO QAM 03/30/19 11/11/20 History nitroglycerin 0.4 mg sublingual 0.4 mg SUBLINGUAL UD PRN 03/30/19 11/11/20 History tablet (Nitrostat) potassium chloride 20 mEq 20 meq PO QAM 03/30/19 11/11/20 History tablet,extended release(part/cryst) (Klor-Con M) rivaroxaban 20 mg tablet (Xarelto) 20 mg PO QDD 03/30/19 11/11/20 History tiotropium bromide 18 mcg capsule 1 cap INHALATION QAM 03/30/19 11/11/20 History with inhalation device (Spiriva with HandiHaler) xaal-saa-uvpig-uieiijpwm-ygubqzhv-abrf-pectin 3 tab PO TID 12/05/19 11/11/20 History 1,000 mg tablet (Fiber 6) omeprazole 20 mg tablet,delayed 20 mg PO QAM 12/05/19 11/11/20 History release oxycodone 5 mg tablet 2.5 mg PO Q12H PRN #5 tab 11/02/20 11/11/20 Rx prednisone 10 mg tablet See Rx Instructions .ROUTE 11/02/20 11/11/20 Rx .COMPLEX #19 tab allopurinol 300 mg tablet 300 mg PO QAM 11/11/20 11/11/20 History brimonidine 1 drp OPB BID 11/11/20 11/11/20 History carvedilol 6.25 mg tablet 0 mg PO BID 11/11/20 11/11/20 History Past Med/Surg History Medical History (Updated 11/11/20 @ 03:10 by Levi Oviedo M.D.) Allergies Asthma Chest pain Chronic respiratory failure Coronary artery disease Elevated blood pressure reading with diagnosis of hypertension Epistaxis GERD (gastroesophageal reflux disease) Hypertension Left knee DJD Lower GI bleed Obstructive sleep apnea Intolerant to CPAP Paroxysmal atrial fibrillation Pulmonary asbestosis Recurrent epistaxis SOBOE (shortness of breath on exertion) Surgical History History of cataract surgery b/l History of eyelid surgery History of tonsillectomy History of total knee arthroplasty Family History Other Family history non-contributory Social History Smoking Status: Former smoker Tobacco Type: Cigarettes Age Quit Using Tobacco: 39; packs per day: 2; Hx Alcohol Use: Yes Alcohol type: hard liquor Hx Substance Use: No Preferred Language: Yi Communication Ability: Effective Weather Strip Mechanic Required: No Beliefs That Will Affect Care: None Current Living Situation: Alone current occupational status: retired Feels Safe at Home: Yes Assistive Devices: Cane, Glasses and Oxygen - Continuous Review of Systems Review of Systems: The patient denies cough, lower extremity swelling, sore throat, fevers, chills, sweats, nausea, vomiting, diarrhea , constipation, abdominal pain, pelvic pain, blood in urine or stool, dysuria, urinary frequency or urgency, lightheadedness, dizziness, headache, memory loss, loss of consciousness, rash, abnormal bruising or bleeding, imbalance, focal or generalized weakness, numbness or tingling in arms or legs, back or neck pain, or night sweats. The review of systems is otherwise negative other than for that already noted above, and at least 10 systems have been reviewed. Physical Exam Physical Exam: The patient is awake, alert and oriented 3, well developed and well nourished, normocephalic and atraumatic, lying in bed and in no acute distress. HEENT--PERRL, EOMI, mucous membranes and oropharynx dry. Neck--supple. No JVD. No bruits. Thyroid normal, trachea midline, no adenopathy. Heart--irregularly irregular. No murmurs, rubs or gallops. Lungs--clear bilaterally, no respiratory distress, no accessory muscle use. Abdomen--normal bowel sounds and soft. Nontender. Nondistended. Morbidly obese Extremities--no cyanosis or clubbing. No edema. Dermatologic--normal skin turgor, normal color, no abnormal lymph nodes, no rash. Neurologic--cranial nerves II through XII grossly intact. Rheumatologic--normal range of motion. Psychiatric--normal affect. Results & Data Results & Data ([facility]) Vital Signs (Past 12 Hours) Vital Signs Temp Pulse Pulse Resp BP BP Pulse Ox 11/11/20 02:12 101 H 20 145/98 H 11/11/20 01:43 123 H 161/99 H 11/11/20 00:48 122 H 133/81 11/10/20 23:56 98.6 F 93 H 26 H 133/81 96 Laboratory Results Laboratory Results WBC 11.40 K/uL (4.8-10.8) H 11/11/20 00:18 RBC 3.60 M/uL (4.7-6.1) L 11/11/20 00:18 Hgb 12.4 g/dL (14.0-18.0) L 11/11/20 00:18 Hct 37.3 % (42-52) L 11/11/20 00:18 MCV 103.6 fL (80-100) H 11/11/20 00:18 MCH 34.4 pg (25-34) H 11/11/20 00:18 MCHC 33.2 g/dL (32-36) 11/11/20 00:18 RDW Std Deviation 53.4 fL (36.4-46.3) H 11/11/20 00:18 RDW Coeff of Hakeem 14.1 % (11.5-14.5) 11/11/20 00:18 Plt Count 244 K/uL (130-400) 11/11/20 00:18 MPV 9.4 fL (7.4-10.4) 11/11/20 00:18 Immature Gran % (Auto) 0.4 % 11/11/20 00:18 Neut % (Auto) 74.6 % 11/11/20 00:18 Lymph % (Auto) 16.3 % 11/11/20 00:18 [place] % (Auto) 7.9 % 11/11/20 00:18 Eos % (Auto) 0.8 % 11/11/20 00:18 Baso % (Auto) 0.0 % 11/11/20 00:18 Neut # (Auto) 8.50 K/uL (1.4-6.5) H 11/11/20 00:18 Lymph # (Auto) 1.86 K/uL (1.2-3.4) 11/11/20 00:18 [place] # (Auto) 0.90 K/uL (0.11-0.59) H 11/11/20 00:18 Eos # (Auto) 0.09 K/uL (0-0.5) 11/11/20 00:18 Baso # (Auto) 0.00 K/uL (0-0.2) 11/11/20 00:18 Immature Gran # (Auto) 0.05 K/uL (0.00-0.02) H 11/11/20 00:18 PT 12.5 Seconds (9.0-12.0) H 11/11/20 00:18 INR 1.3 (0.9-1.1) H 11/11/20 00:18 APTT 34.7 Seconds (21.0-31.0) H 11/11/20 00:18 PTT Ratio 1.3 11/11/20 00:18 Sodium 141 mmol/L (136-145) 11/11/20 00:18 Potassium 3.3 mmol/L (3.5-5.1) L 11/11/20 00:18 Chloride 105 mmol/L (98-107) 11/11/20 00:18 Carbon Dioxide 32 mmol/L (21-32) 11/11/20 00:18 Anion Gap 4.0 (3-11) 11/11/20 00:18 BUN 13 mg/dl (7-18) 11/11/20 00:18 Creatinine 0.67 mg/dl (0.6-1.4) 11/11/20 00:18 Est Cr Clr Drug Dosing 136.5 ml/min 11/11/20 00:18 Est GFR ( Amer) 112.8 ml/min 11/11/20 00:18 Est GFR (Non-Af Amer) 97.4 ml/min 11/11/20 00:18 BUN/Creatinine Ratio 19.4 (10-20) 11/11/20 00:18 Glucose 124 mg/dl (70-99) H 11/11/20 00:18 Calcium 8.5 mg/dl (8.5-10.1) 11/11/20 00:18 Magnesium 1.4 mg/dl (1.8-2.4) L 11/11/20 00:18 Total Bilirubin 0.6 mg/dl (0.2-1) 11/11/20 00:18 AST 15 U/L (15-37) 11/11/20 00:18 ALT 29 U/L (12-78) 11/11/20 00:18 Alkaline Phosphatase 44 U/L (45-117) L 11/11/20 00:18 Troponin I < 0.015 ng/ml (0-0.045) 11/11/20 00:18 Total Protein 6.1 gm/dl (6.4-8.2) L 11/11/20 00:18 Albumin 3.1 gm/dl (3.4-5.0) L 11/11/20 00:18 Globulin 3.0 gm/dl (2.5-4.0) 11/11/20 00:18 Albumin/Globulin Ratio 1.0 (0.9-2) 11/11/20 00:18 Lipase 134 U/L (73-393) 11/11/20 00:18 COVID-19 Eval Order Covid19 at [facility] 11/11/20 01:43 SARS-CoV-2 (PCR) NEGATIVE (Negative) 11/11/20 01:43 ECG Additional Comments: TALITA MARYJANE ID:[id number] 11-NOV-2020 02:25:24 [facility]- EDSTAT ROUTINE RETRIEVAL Atrial fibrillation Low voltage QRS Abnormal ECG When compared with ECG of 11-NOV-2020 00:12, (unconfirmed) QRS axis Shifted right Non-specific change in ST segment in Lateral leads Nonspecific T wave abnormality, improved in Lateral leads 25mm/s 10mm/mV 150Hz 9.0.9 12SL 241 KD: 10 Referred by: REFERRED SELF Unconfirmed Vent. 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 Test ind Code Status & VTE Plan VTE Prophylaxis Plan VTE Prophylaxis will be ordered: Yes PG Care Time/CCT Total # of Minutes Spent Total Time Spent with Patient: Total time spent is greater than 50% in coordination of care (as documented) at patient's floor/unit and/or counseling patient: Coding Level of Care Code 05003 Initial Inpt Care Lvl 3 Diagnoses Atrial fibrillation with rapid ventricular response I48.91 Gout M10.9 Chronicity: acute Gout etiology: unspecified cause Gout site: foot Laterality: right Obesity hypoventilation syndrome E66.2 GERD (gastroesophageal reflux disease) K21.9 Asthma J45.909 Asthma complication type: uncomplicated Asthma persistence: persistent Asthma severity: unspecified severity Obstructive sleep apnea G47.33 Coronary artery disease I25.10 Hypertension I10 Hypertension type: unspecified Paroxysmal atrial fibrillation I48.0 (1) Gout Chronicity: acute Gout etiology: unspecified cause Gout site: foot Laterality: right Qualified Code(s): M10.9 - Gout, unspecified (2) Asthma Asthma complication type: uncomplicated Asthma persistence: persistent Asthma severity: unspecified severity Qualified Code(s): J45.909 - Unspecified asthma, uncomplicated (3) Hypertension Hypertension type: unspecified Qualified Code(s): I10 - Essential (primary) hypertension
[2020-11-11] MEDS ORDERED: METOPROLOL TARTRATE 1 MG/ML VIAL IV PRN (02:39)
[2020-11-11] MEDS ORDERED: carvediloL 12.5 MG TAB PO STA (02:39)
[2020-11-11] MEDS ORDERED: ONDANSETRON INJ 2 MG/ML 2 ML VIAL IV PRN (05:55)
[2020-11-11] MEDS ORDERED: NITROGLYCERIN SL 0.4 MG/TAB TAB SL PRN ×2 (05:55)
[2020-11-11] MEDS ORDERED: ACETAMINOPHEN 325 MG TAB PO PRN (05:55)
[2020-11-11] MEDS ORDERED: oxyCODONE HCL IR 5 MG TAB (IMMEDIATE RELEASE) PO PRN (05:55)
[2020-11-11] MEDS ORDERED: MoRPHine SULFATE 2 MG/ML CARP IV PRN (05:59)
[2020-11-11] MEDS ORDERED: NITROGLYCERIN SL 0.4 MG/TAB TAB ONE (06:03)
--- NOTE | 2020-11-11 07:06 | XRay Report ---
XR chest 1V portable CLINICAL HISTORY: Chest Pain COMPARISON STUDY: Chest radiograph November 02, 2020. FINDINGS: Lung volumes are diminished. This is unchanged. There is no pneumothorax or pleural effusio n. Enlargement of the cardiac silhouette is unchanged. Mediastinum is unchanged. Right basilar opacit y is present. There is no evidence for pulmonary edema. IMPRESSION: 1. Low lung volumes with right basilar opacity which could reflect pneumonia or atelectasis. Radiogra [facility] follow-up is recommended. 2. Cardiomegaly. ACT 112: Negative or not required by law. Electronically signed by: John Melendez M.D. 11/11/2020 7:05 AM
[2020-11-11] MEDS ORDERED: DICLOFENAC SOD 1% GEL 100 GM TUBE EXT PRN ×2 (07:09→07:18)
--- NOTE | 2020-11-11 08:40 | Electrocardiogram Report ---
Test Reason : Blood Pressure : / mmHG Vent. Rate : 129 BPM Atrial Rate : 166 BPM P-R Int : 000 ms QRS Dur : 076 ms QT Int : 372 ms P-R-T Axes : 000 201 258 degrees QTc Int : 544 ms Poor data quality, interpretation may be adversely affected Atrial fibrillation with rapid ventricular response Right superior axis deviation Low voltage QRS Diffuse Nonspecific T wave abnormality Abnormal ECG When compared with ECG of 02-NOV-2020 11:41, HR has increased by 27 bpm Confirmed by Gael Mariee ([id number]) on 11/11/2020 8:39:58 AM Referred By: REFERRED SELF Confirmed By:Gael Mariee
--- NOTE | 2020-11-11 08:41 | Electrocardiogram Report ---
Test Reason : Blood Pressure : / mmHG Vent. Rate : 092 BPM Atrial Rate : 136 BPM P-R Int : 000 ms QRS Dur : 076 ms QT Int : 354 ms P-R-T Axes : 000 -13 -33 degrees QTc Int : 437 ms Atrial fibrillation Low voltage QRS Diffuse Nonspecific T wave abnormality Abnormal ECG When compared with ECG of 11-NOV-2020 00:12, HR has decreased by 37 bpm Otherwise no significant change Confirmed by Gael Mariee ([id number]) on 11/11/2020 8:41:11 AM Referred By: REFERRED SELF Confirmed By:Gael Mariee
--- NOTE | 2020-11-11 08:41 | Electrocardiogram Report ---
Test Reason : Blood Pressure : / mmHG Vent. Rate : 105 BPM Atrial Rate : 104 BPM P-R Int : 000 ms QRS Dur : 080 ms QT Int : 346 ms P-R-T Axes : 000 -10 -09 degrees QTc Int : 457 ms Atrial fibrillation with rapid ventricular response Abnormal ECG When compared with ECG of 11-NOV-2020 02:25, No significant change was found Confirmed by Gael Mariee ([id number]) on 11/11/2020 8:41:29 AM Referred By: REFERRED SELF Confirmed By:Gael Mariee
[2020-11-11] MEDS ORDERED: FUROSEMIDE 40 MG TAB PO SCH (09:00)
[2020-11-11] MEDS ORDERED: PANTOprazole 40 MG TAB PO SCH (09:00)
[2020-11-11] MEDS ORDERED: carvediloL 12.5 MG TAB PO SCH (09:00)
[2020-11-11] MEDS ORDERED: POTASSIUM CHLORIDE CRTAB 20 MEQ TABCR PO SCH (09:00)
[2020-11-11] MEDS ORDERED: [UNRECOGNIZED DRUG - OTHER] PO SCH (09:00)
[2020-11-11 09:17] LABS: Potassium 3.8 mmol/L (3.5-5.1)
--- NOTE | 2020-11-11 09:21 | XCELERA ---
[id number]
[2020-11-11 09:22] LABS: Magnesium 2.2 mg/dl (1.8-2.4)
[2020-11-11] MEDS: METOPROLOL TARTRATE 25 MG TAB PO SCH ×3 (09:22→21:04)
[2020-11-11] MEDS: LORATADINE 10 MG TAB PO SCH (09:23)
[2020-11-11] MEDS: DOXYCYCLINE HYCLATE 100 MG in DEXTROSE 5% 100 ML IV SCH ×2 (09:23→21:08)
[2020-11-11] MEDS: cefTRIAXone SODIUM 2,000 MG in DEXTROSE 5% 50 ML IV SCH (09:23)
[2020-11-11] MEDS: UMECLIDINIUM BROMIDE 62.5MCG/BLISTER 7 PUFFS/INHALER INH SCH (09:24)
[2020-11-11] MEDS: lisinopril 10 MG TAB PO SCH ×2 (09:24→21:05)
[2020-11-11] MEDS: FLUTICASONE/VILANTEROL 200/25MCG 14 PUFFS/INHALER INH SCH (09:24)
[2020-11-11] MEDS: allopurinoL 300 MG TAB PO SCH (09:25)
[2020-11-11] MEDS: BRIMONIDINE TARTRATE 0.2% 5ML OPB SCH ×2 (09:25→21:08)
[2020-11-11] MEDS ORDERED: ALBUT/IPRATROP 3MG/0.5MG NEB 3 ML VIAL NEB STA (12:13)
--- NOTE | 2020-11-11 12:24 | Cardiology Consultation ---
Date of Consultation November 11, 2020 Assessment & Plan (1) Atrial fibrillation with rapid ventricular response: (2) Permanent atrial fibrillation: Review of records shows he was in sinus rhythm last year but was in atrial fibrillation at the time of an ER visit in May of this year. Suspect that he is now in permanent atrial fibrillation and his rapid ventricular response was secondary to increased adrenergic state of chest pain/ER visit/hospitalization. Agree with mild increase in carvedilol, his current heart rate of 90 bpm is appropriate. Agree with chronic anticoagulation with rivaroxaban. He was on aspirin but this was appropriately stopped after a GI bleed. Since he is not having any symptoms at recent baseline attributable to his atrial fibrillation, would not be inclined to attempt to return to sinus rhythm. No other recommendations regarding his atrial fibrillation, as he is rate controlled and anticoagulated (3) Coronary artery disease: (4) Chest pain: Given ongoing symptoms of chest discomfort which are atypical for myocardial ischemia (pleuritic) with negative enzymes and nondynamic ECG, unlikely that myocardial ischemia plays any role in his current discomfort. Etiology of his chest discomfort is uncertain, possibly esophageal. However, there is a pleuritic component and his chest x-ray shows a basilar opacity and he has a mild and increasing leukocytosis, could be early pneumonia. Would continue to observe today, if concerns regarding his cardiac status remain and he has no alternative explanation which becomes apparent, could obtain dobutamine stress echocardiogram tomorrow. (5) Hypomagnesemia: (6) Hypokalemia: (7) Supplemental oxygen dependent: (8) Chronic respiratory failure: History of Present Illness Reason for Consultation: A. fib with rapid ventricular rate Requesting Physician: Vincent Corrales MD Attending Physician: Mario Vee History of Present Illness 70-year-old man with history of CAD (RCA stent 2009, no remaining occlusive disease), previously paroxysmal and now likely permanent atrial fibrillation (carvedilol/rivaroxaban) oxygen dependent lung disease (asbestosis, asthma, sleep apnea, obesity hypoventilation syndrome) and other medical problems who was admitted earlier today with substernal chest pain and rapid ventricular response to his atrial fibrillation. At baseline, he can perform most activities of daily living without difficulty but does not engage in any heavy exertion due to his oxygen dependent lung disease. He denies any chest discomfort recently prior to the onset of symptoms yesterday. He denies orthopnea or PND but does have chronic leg edema and takes furosemide routinely. His chest discomfort was severe substernal pressure which was 6 out of 10 severity lasting for several hours, it never really resolved and he notes that there is still 4 out of 10 level discomfort. His discomfort reliably increases with inspiration. No associated symptoms of dyspnea, diaphoresis, palpitations, presyncope or syncope. No reflux or GI symptoms. Serial ECGs showed atrial fibrillation with nonspecific T wave flattening but no ST abnormalities. Troponin is negative x3. Echocardiogram showed low normal systolic function and no regional wall motion abnormalities. Although he still noticed some chest discomfort, he feels fairly comfortable currently at rest in the ICU. No other somatic complaints. Allergies Allergy/AdvReac Type Severity Reaction Status Date / Time No Known Drug Allergies Allergy Unknown NKDA Verified 11/11/20 00:16 soap Allergy Unknown "Tide Verified 11/11/20 12:16 laundry detergent" -- rash Home Medications Medication Instructions Recorded Confirmed Type albuterol sulfate 90 mcg/actuation 2 puff INHALATION QID PRN 03/30/19 11/11/20 History aerosol inhaler (Ventolin HFA) atorvastatin 80 mg tablet (Lipitor) 40 mg PO HS 03/30/19 11/11/20 History budesonide-formoterol HFA 160 2 puff INHALATION BID 03/30/19 11/11/20 History mcg-4.5 mcg/actuation aerosol inhaler (Symbicort) furosemide 40 mg tablet (Lasix) 40 mg PO QAM 03/30/19 11/11/20 History latanoprost 0.005 % eye drops 1 drp OPB HS 03/30/19 11/11/20 History (Xalatan) lisinopril 20 mg tablet (Zestril) 20 mg PO BID 03/30/19 11/11/20 History loratadine 10 mg tablet (Claritin) 10 mg PO QAM 03/30/19 11/11/20 History nitroglycerin 0.4 mg sublingual 0.4 mg SUBLINGUAL UD PRN 03/30/19 11/11/20 History tablet (Nitrostat) potassium chloride 20 mEq 20 meq PO QAM 03/30/19 11/11/20 History tablet,extended release(part/cryst) (Klor-Con M) rivaroxaban 20 mg tablet (Xarelto) 20 mg PO QDD 03/30/19 11/11/20 History tiotropium bromide 18 mcg capsule 1 cap INHALATION QAM 03/30/19 11/11/20 History with inhalation device (Spiriva with HandiHaler) kwoq-woe-hvujx-jowjomaqo-jkglirry-fevt-pectin 3 tab PO TID 12/05/19 11/11/20 History 1,000 mg tablet (Fiber 6) omeprazole 20 mg tablet,delayed 20 mg PO QAM 12/05/19 11/11/20 History release oxycodone 5 mg tablet 2.5 mg PO Q12H PRN #5 tab 11/02/20 11/11/20 Rx prednisone 10 mg tablet See Rx Instructions .ROUTE 11/02/20 11/11/20 Rx .COMPLEX #19 tab allopurinol 300 mg tablet 300 mg PO QAM 11/11/20 11/11/20 History brimonidine 1 drp OPB BID 11/11/20 11/11/20 History carvedilol 6.25 mg tablet 0 mg PO BID 11/11/20 11/11/20 History Patient History Medical History Allergies Asthma Chronic respiratory failure Coronary artery disease Elevated blood pressure reading with diagnosis of hypertension Epistaxis GERD (gastroesophageal reflux disease) Hypertension Left knee DJD Lower GI bleed Mixed hyperlipidemia Obstructive sleep apnea Intolerant to CPAP Paroxysmal atrial fibrillation Pulmonary asbestosis Recurrent epistaxis SOBOE (shortness of breath on exertion) Surgical History History of cataract surgery b/l History of eyelid surgery History of tonsillectomy History of total knee arthroplasty Knee joint replacement status Family History Family history non-contributory Social History Smoking Status: Former smoker Tobacco Type: Cigarettes Age Quit Using Tobacco: 39; packs per day: 2; Hx Alcohol Use: Yes Alcohol type: hard liquor Hx Substance Use: No Preferred Language: Portuguese Communication Ability: Effective Risk Management Professional Required: No Beliefs That Will Affect Care: None Current Living Situation: Alone current occupational status: retired Feels Safe at Home: Yes Assistive Devices: Cane and Oxygen - Continuous Physical Exam Physical Exam: Moderately obese elderly white male who appears comfortable. BP normotensive to mildly hypertensive (systolic and diastolic) Pulse currently 90 bpm and irregular. Skin: no ecchymoses or generalized lesions. HEENT: unremarkable. Neck: Jugular venous pulse prison to the angle of the jaw at 60 degrees, no obvious carotid bruits. Lungs: Mildly decreased breath sounds but generally clear. No accessory muscle use. Cardiac: Irregular rhythm with normal S1 and readily audible S2, 2/6 apical holosystolic murmur which is nonradiating. No diastolic murmur. Abdomen: benign. Extremities: 1+ pretibial edema with chronic stasis changes, pulses intact. Neurologic: normal affect and conversation, nonfocal. Results & Data ([facility]) Laboratory Results Initial potassium 3.2 now up to 3.8. Magnesium increase from 1.7-2.2. Creatinine 0.67. Hemoglobin 12.4. WBC 11.4. Sed rate 59. Troponin negative x3 Diagnostic Findings ECG and echo as noted in HPI. Echocardiogram also showed moderate LVH with diastolic dysfunction and mild pulmonary hypertension. Chest x-ray with right basilar opacity and cardiomegaly. No CHF. PG Care Time/CCT Total # of Minutes Spent Total Time Spent with Patient: Total time spent is greater than 50% in coordination of care (as documented) at patient's floor/unit and/or counseling patient: Coding Level of Care Code 16623 Initial Inpt Care Lvl 3 Diagnoses Atrial fibrillation with rapid ventricular response I48.91 Permanent atrial fibrillation I48.21 Hypomagnesemia E83.42 Chest pain R07.9 Chest pain type: unspecified Coronary artery disease I25.10 Hypokalemia E87.6 Supplemental oxygen dependent Z99.81 Chronic respiratory failure J96.10 (1) Chest pain Chest pain type: unspecified Qualified Code(s): R07.9 - Chest pain, unspecified
[2020-11-11] MEDS ORDERED: OPTIRAY 320 125ml IV ONE (13:10)
--- NOTE | 2020-11-11 14:14 | CT Scan Report ---
CT ANGIOGRAPHY OF THE CHEST, PULMONARY EMBOLUS PROTOCOL CLINICAL HISTORY: pleuritic CP, ?RLL pneumonia; eval pneumonia, PE COMPARISON STUDY: Chest CT December 18, 2015. Chest radiograph November 03, 2020. TECHNIQUE: Following IV administration of 120 mL of Optiray, helical axial images of the chest were o btained utilizing the pulmonary embolus protocol. Maximal intensity projections and sagittal and cor onal reformats were viewed on an independent 3D workstation. IV contrast was administered without co mplication. Automated exposure control was utilized for the study. A dose lowering technique was ut ilized adhering to the principles of ALARA. CT DOSE: 500.91 mGycm FINDINGS: No central pulmonary emboli are identified. The remainder of the pulmonary arteries are walker boptimally assessed on this exam due to artifact. There is moderate cardiomegaly. There is no mediast inal or hilar lymphadenopathy. Lungs are suboptimally assessed due to artifact. Bilateral lower lobe subpleural opacities reflect atelectasis. There are mild groundglass opacities within the lungs. Ther e is no pneumothorax or pleural effusion. Lungs are suboptimally assessed due to respiratory motion. There is moderate coronary artery calcification. IMPRESSION: 1. No central pulmonary emboli identified. Remainder of pulmonary arteries suboptimally assessed due to artifact. 2. Bilateral lower lobe subpleural opacities consistent with atelectasis. Mild groundglass opacities within the remainder of the lungs, similar to prior exam. 3. Cardiomegaly. ACT 112: Negative or not required by law. Electronically signed by: John Melendez M.D. 11/11/2020 2:13 PM
[2020-11-11] MEDS ORDERED: KETOROLAC TROMETHAMINE 15 MG/ML VIAL IV ONE (16:06)
[2020-11-11] MEDS ORDERED: RIVAROXABAN 20 MG TAB PO SCH (16:30)
[2020-11-11 18:48] LABS: Partial Thromboplastin Ratio 1.1; Partial Thromboplastin Time 29.9 Seconds (21.0-31.0)
[2020-11-11] MEDS ORDERED: LATANOPROST 0.005% OP SOLN 2.5 ML BTL OPB SCH (21:00)
[2020-11-11] MEDS ORDERED: ATORVASTATIN 40 MG TAB PO SCH (21:00)
[2020-11-11] MEDS: IBUPROFEN 600 MG TAB PO SCH (21:05)
[2020-11-11] MEDS: COLCHICINE 0.6 MG TAB PO SCH (21:06)
[2020-11-11] MEDS: PANTOprazole 40 MG TAB PO SCH (21:07)
[2020-11-11] MEDS ORDERED: POLYETHYLENE (MIRALAX) 17 GM PACK PO PRN (21:24)
--- NOTE | 2020-11-11 21:48 | Hospitalist Progress Note ---
Date of Service November 11, 2020 Assessment & Plan (1) Pleuritic chest pain: Plan: Troponins all negative. No evidence of ACS. Elevated sed rate and crp, along with features of his pain, may suggest pericarditis. Can't rule out pneumonia as the cause of his symptoms. CT chest without PEs. Gave toradol x 1 this afternoon with good response. If this is pericarditis start ibuprofen 600mg BID and colchicine 0.6mg BID. Re-eval in am. In the event his pain is from an atypical pneumonia will continue IV antibiotics. (2) Abnormal chest CT: Plan: groundglass opacities b/l. ?pulm edema? ?infectious? other? radiology mentions it looks chronic. either way will Rx for pneumonia as precautionary measure. (3) Atrial fibrillation with rapid ventricular response: Plan: Low K and Low mag will worsen this. Both replaced. Change coreg to metoprolol 25mg q6h for better rate control. Cont xarelto. Titrate metoprolol as needed. Echo noted. Appreciate cardiology consultation. (4) Gout: Plan: Continue allopurinol Recent right mid-foot flare - resolved on exam today (5) Obesity hypoventilation syndrome: Plan: Obesity hypoventilation syndrome Cont NC O2 (6) GERD (gastroesophageal reflux disease): Plan: Continue PPI but increase to BID dosing due to NSAID use (7) Asthma: Plan: No obvious exacerbation at this time Cont inhalers (8) Obstructive sleep apnea: Plan: CPAP at bedtime (9) Coronary artery disease: Plan: Chest pain unlikely to be ischemic Troponins all negative to date cont statin, cont beta julisa (10) Hypertension: Plan: Cont BB Cont JASPREET (11) Chronic respiratory failure with hypoxia: Plan: on home O2 - 2nd obesity-hypoventilation? asthma? combination? other? Plan: will need PT/OT while here Admission and Anticipated Discharge Date Admission Date: November 11, 2020 Subjective patient states he continues with chest discomfort. central, pleuritic, does not radiate. ?worsened by laying down? (he reports that the pain awoke him from sleep at home). the pain is constant. has mild cough only. no dyspnea at rest. mild orthopnea. received IV morphine earlier today "that helped a little." denies reflux type symptoms. no sick contacts, no travel, and he is fully vaccinated against COVID-19. Review of Systems Review of Systems: Gen: no anorexia. Pulm/Resp: cough present; no dyspnea at rest. Cardio: see HPI. No palpitations. GI: no abd pain, nausea, emesis. Physical Exam Physical Exam: gen - NAD, no respiratory distress neck - no JVD heart - irregular, s1 s2, no murmur lungs - mild fine rales bases, no increased work of breathing abd - soft, NT, ND, BS+ chest - no reproducible chest wall pain to palpation ext - no edema, pulses 2+ b/l musculo - right foot - mid-foot not swollen or tender to palpation Results & Data Results & Data ([facility]) Vital Signs (Past 12 Hours) Vital Signs Temp Pulse Pulse Resp BP BP Pulse Ox 11/11/20 20:29 36.7 C 96 H 19 163/113 H 95 11/11/20 17:30 90 19 95 11/11/20 17:00 98 H 24 177/104 H 92 11/11/20 16:58 79 23 94 11/11/20 16:12 36.8 C 11/11/20 14:12 92 H 16 95 11/11/20 13:52 98 H 24 146/98 H 94 11/11/20 12:57 99 H 24 112/65 90 11/11/20 12:12 37 C 11/11/20 11:57 23 138/64 90 11/11/20 10:57 91 H 21 145/109 H 94 Laboratory Results Laboratory Results - last 24 hr 11/11/20 11/11/20 11/11/20 00:18 00:18 00:18 WBC 11.40 H RBC 3.60 L Hgb 12.4 L Hct 37.3 L MCV 103.6 H MCH 34.4 H MCHC 33.2 RDW Std Deviation 53.4 H RDW Coeff of Hakeem 14.1 Plt Count 244 MPV 9.4 Immature Gran % (Auto) 0.4 Neut % (Auto) 74.6 Lymph % (Auto) 16.3 Clay % (Auto) 7.9 Eos % (Auto) 0.8 Baso % (Auto) 0.0 Neut # (Auto) 8.50 H Lymph # (Auto) 1.86 Clay # (Auto) 0.90 H Eos # (Auto) 0.09 Baso # (Auto) 0.00 Immature Gran # (Auto) 0.05 H ESR PT 12.5 H INR 1.3 H APTT 34.7 H PTT Ratio 1.3 Sodium 141 Potassium 3.3 L Chloride 105 Carbon Dioxide 32 Anion Gap 4.0 BUN 13 Creatinine 0.67 Est Cr Clr Drug Dosing 136.5 Est GFR ( Amer) 112.8 Est GFR (Non-Af Amer) 97.4 BUN/Creatinine Ratio 19.4 Glucose 124 H POC Glucose Calcium 8.5 Magnesium 1.4 L Total Bilirubin 0.6 AST 15 ALT 29 Alkaline Phosphatase 44 L Troponin I < 0.015 C-Reactive Protein Total Protein 6.1 L Albumin 3.1 L Globulin 3.0 Albumin/Globulin Ratio 1.0 Lipase 134 Procalcitonin Nasal Screen MRSA (PCR) COVID-19 Eval Order SARS-CoV-2 (PCR) Hepatitis C Ab Screen 11/11/20 11/11/20 11/11/20 01:43 01:43 06:19 WBC RBC Hgb Hct MCV MCH MCHC RDW Std Deviation RDW Coeff of Hakeem Plt Count MPV Immature Gran % (Auto) Neut % (Auto) Lymph % (Auto) Clay % (Auto) Eos % (Auto) Baso % (Auto) Neut # (Auto) Lymph # (Auto) Clay # (Auto) Eos # (Auto) Baso # (Auto) Immature Gran # (Auto) ESR PT INR APTT PTT Ratio Sodium Potassium Chloride Carbon Dioxide Anion Gap BUN Creatinine Est Cr Clr Drug Dosing Est GFR ( Amer) Est GFR (Non-Af Amer) BUN/Creatinine Ratio Glucose POC Glucose Calcium Magnesium Total Bilirubin AST ALT Alkaline Phosphatase Troponin I < 0.015 C-Reactive Protein Total Protein Albumin Globulin Albumin/Globulin Ratio Lipase Procalcitonin Nasal Screen MRSA (PCR) COVID-19 Eval Order Covid19 at [facility] SARS-CoV-2 (PCR) NEGATIVE Hepatitis C Ab Screen 11/11/20 11/11/20 11/11/20 07:54 08:41 08:41 WBC RBC Hgb Hct MCV MCH MCHC RDW Std Deviation RDW Coeff of Hakeem Plt Count MPV Immature Gran % (Auto) Neut % (Auto) Lymph % (Auto) Clay % (Auto) Eos % (Auto) Baso % (Auto) Neut # (Auto) Lymph # (Auto) Clay # (Auto) Eos # (Auto) Baso # (Auto) Immature Gran # (Auto) ESR PT INR APTT PTT Ratio Sodium Potassium 3.8 D Chloride Carbon Dioxide Anion Gap BUN Creatinine Est Cr Clr Drug Dosing Est GFR ( Amer) Est GFR (Non-Af Amer) BUN/Creatinine Ratio Glucose POC Glucose 134 H Calcium Magnesium 2.2 Total Bilirubin AST ALT Alkaline Phosphatase Troponin I C-Reactive Protein Total Protein Albumin Globulin Albumin/Globulin Ratio Lipase Procalcitonin 0.10 Nasal Screen MRSA (PCR) COVID-19 Eval Order SARS-CoV-2 (PCR) Hepatitis C Ab Screen 11/11/20 11/11/20 11/11/20 11:00 16:24 16:24 WBC RBC Hgb Hct MCV MCH MCHC RDW Std Deviation RDW Coeff of Hakeem Plt Count MPV Immature Gran % (Auto) Neut % (Auto) Lymph % (Auto) Clay % (Auto) Eos % (Auto) Baso % (Auto) Neut # (Auto) Lymph # (Auto) Clay # (Auto) Eos # (Auto) Baso # (Auto) Immature Gran # (Auto) ESR PT INR APTT PTT Ratio Sodium Potassium Chloride Carbon Dioxide Anion Gap BUN Creatinine Est Cr Clr Drug Dosing Est GFR ( Amer) Est GFR (Non-Af Amer) BUN/Creatinine Ratio Glucose POC Glucose Calcium Magnesium Total Bilirubin AST ALT Alkaline Phosphatase Troponin I < 0.015 C-Reactive Protein Total Protein Albumin Globulin Albumin/Globulin Ratio Lipase Procalcitonin Nasal Screen MRSA (PCR) Negative COVID-19 Eval Order SARS-CoV-2 (PCR) Hepatitis C Ab Screen Neg 11/11/20 11/11/20 11/11/20 18:13 18:22 18:22 WBC RBC Hgb Hct MCV MCH MCHC RDW Std Deviation RDW Coeff of Hakeem Plt Count MPV Immature Gran % (Auto) Neut % (Auto) Lymph % (Auto) Clay % (Auto) Eos % (Auto) Baso % (Auto) Neut # (Auto) Lymph # (Auto) Clay # (Auto) Eos # (Auto) Baso # (Auto) Immature Gran # (Auto) ESR 37 H PT INR APTT 29.9 PTT Ratio 1.1 Sodium Potassium Chloride Carbon Dioxide Anion Gap BUN Creatinine Est Cr Clr Drug Dosing Est GFR ( Amer) Est GFR (Non-Af Amer) BUN/Creatinine Ratio Glucose POC Glucose Calcium Magnesium Total Bilirubin AST ALT Alkaline Phosphatase Troponin I C-Reactive Protein 16.60 H Total Protein Albumin Globulin Albumin/Globulin Ratio Lipase Procalcitonin Nasal Screen MRSA (PCR) COVID-19 Eval Order SARS-CoV-2 (PCR) Hepatitis C Ab Screen Diagnostic Findings Chest X-Ray 11/11/20 00:32 XR chest 1V portable CLINICAL HISTORY: Chest Pain COMPARISON STUDY: Chest radiograph November 02, 2020. FINDINGS: Lung volumes are diminished. This is unchanged. There is no pneumothorax or pleural effusion. Enlargement of the cardiac silhouette is unchanged. Mediastinum is unchanged. Right basilar opacity is present. There is no evidence for pulmonary edema. IMPRESSION: 1. Low lung volumes with right basilar opacity which could reflect pneumonia or atelectasis. Radiographic follow-up is recommended. 2. Cardiomegaly. ACT 112: Negative or not required by law. Electronically signed by: John Melendez M.D. 11/11/2020 7:05 AM Chest CTA 11/11/20 12:13 CT ANGIOGRAPHY OF THE CHEST, PULMONARY EMBOLUS PROTOCOL CLINICAL HISTORY: pleuritic CP, ?RLL pneumonia; eval pneumonia, PE COMPARISON STUDY: Chest CT December 18, 2015. Chest radiograph November 03, 2020. TECHNIQUE: Following IV administration of 120 mL of Optiray, helical axial images of the chest were obtained utilizing the pulmonary embolus protocol. Maximal intensity projections and sagittal and coronal reformats were viewed on an independent 3D workstation. IV contrast was administered without complication. Automated exposure control was utilized for the study. A dose lowering technique was utilized adhering to the principles of ALARA. CT DOSE: 500.91 mGycm FINDINGS: No central pulmonary emboli are identified. The remainder of the pulmonary arteries are suboptimally assessed on this exam due to artifact. There is moderate cardiomegaly. There is no mediastinal or hilar lymphadenopathy. Lungs are suboptimally assessed due to artifact. Bilateral lower lobe subpleural opacities reflect atelectasis. There are mild groundglass opacities within the lungs. There is no pneumothorax or pleural effusion. Lungs are suboptimally assessed due to respiratory motion. There is moderate coronary artery calcification. IMPRESSION: 1. No central pulmonary emboli identified. Remainder of pulmonary arteries suboptimally assessed due to artifact. 2. Bilateral lower lobe subpleural opacities consistent with atelectasis. Mild groundglass opacities within the remainder of the lungs, similar to prior exam. 3. Cardiomegaly. ACT 112: Negative or not required by law. Electronically signed by: John Melendez M.D. 11/11/2020 2:13 PM PG Care Time/CCT Total # of Minutes Spent Total Time Spent with Patient: Total time spent is greater than 50% in coordinat ion of care (as documented) at patient's floor/unit and/or counseling patient: Coding Level of Care Code 49971 Subseq Hosp Care Lvl 3 Diagnoses Atrial fibrillation with rapid ventricular response I48.91 Gout M10.9 Chronicity: acute Gout etiology: unspecified cause Gout site: foot Laterality: right Obesity hypoventilation syndrome E66.2 GERD (gastroesophageal reflux disease) K21.9 Asthma J45.909 Asthma complication type: uncomplicated Asthma persistence: persistent Asthma severity: unspecified severity Obstructive sleep apnea G47.33 Coronary artery disease I25.10 Hypertension I10 Hypertension type: unspecified Pleuritic chest pain R07.[address] R93.89 Chronic respiratory failure with hypoxia J96.11 (1) Gout Chronicity: acute Gout etiology: unspecified cause Gout site: foot Laterality: right Qualified Code(s): M10.9 - Gout, unspecified (2) Asthma Asthma complication type: uncomplicated Asthma persistence: persistent Asthma severity: unspecified severity Qualified Code(s): J45.909 - Unspecified asthma, uncomplicated (3) Hypertension Hypertension type: unspecified Qualified Code(s): I10 - Essential (primary) hypertension
[2020-11-11] MEDS ORDERED: METOPROLOL TARTRATE 25 MG TAB PO ONE (22:35)
[2020-11-12] MEDS ORDERED: METOPROLOL TARTRATE 50 MG TAB PO SCH (02:00)
[2020-11-12 05:13] LABS: Eosinophils # (auto) 0.09 K/uL (0-0.5); Eosinophils % (auto) 1.1 %; Hematocrit (blood only) 37.2 % (42-52); Hemoglobin 12.1 g/dL (14.0-18.0); Immature Granulocytes # (auto) 0.02 K/uL (0.00-0.02); Immature Granulocytes % (auto) 0.2 %; Lymphocytes # (auto) 1.26 K/uL (1.2-3.4); Lymphocytes % (auto) 15.5 %; Mean Corpuscular Hemoglobin 34.1 pg (25-34); Mean Corpuscular Hgb Conc 32.5 g/dL (32-36); Mean Corpuscular Volume 104.8 fL (80-100); Mean Platelet Volume 9.6 fL (7.4-10.4); Monocytes # (auto) 0.69 K/uL (0.11-0.59); Monocytes % (auto) 8.5 %; Neutrophils # (auto) 6.09 K/uL (1.4-6.5); Neutrophils % (auto) 74.7 %; Platelet Count 169 K/uL (130-400); RDW Coefficient of Variation 14.4 % (11.5-14.5); RDW Standard Deviation 55.7 fL (36.4-46.3); Red Blood Count 3.55 M/uL (4.7-6.1); White Blood Count 8.15 K/uL (4.8-10.8)
[2020-11-12 05:25] LABS: BUN Creatinine Ratio 22.2 (10-20); Calcium 8.7 mg/dl (8.5-10.1); Creatinine Clr Calc Pharmacy 116.1 ml/min; Est GFR (African American) 112.1 ml/min; Est GFR (Non-African American) 96.8 ml/min; Potassium 3.7 mmol/L (3.5-5.1)
--- NOTE | 2020-11-12 07:56 | Hospitalist Progress Note ---
Date of Service November 12, 2020 Assessment & Plan (1) Pleuritic chest pain: Plan: Troponins all negative. No evidence of ACS. Elevated sed rate and crp, along with features of his pain, may suggest pericarditis. Can't rule out pneumonia as the cause of his symptoms. CT chest without PEs. Gave toradol x 1 this afternoon with good response. If this is pericarditis start ibuprofen 600mg BID and colchicine 0.6mg BID. Re-eval in am. In the event his pain is from an atypical pneumonia will continue IV antibiotics. (2) Abnormal chest CT: Plan: groundglass opacities b/l. ?pulm edema? ?infectious? other? radiology mentions it looks chronic. either way will Rx for pneumonia as precautionary measure. (3) Atrial fibrillation with rapid ventricular response: Plan: Low K and Low mag will worsen this. Both replaced. Change coreg to metoprolol 25mg q6h for better rate control. Cont xarelto. Titrate metoprolol as needed. Echo noted. Appreciate cardiology consultation. (4) Gout: Plan: Continue allopurinol Recent right mid-foot flare - resolved on exam today (5) Obesity hypoventilation syndrome: Plan: Obesity hypoventilation syndrome Cont NC O2 (6) GERD (gastroesophageal reflux disease): Plan: Continue PPI but increase to BID dosing due to NSAID use (7) Asthma: Plan: No obvious exacerbation at this time Cont inhalers (8) Obstructive sleep apnea: Plan: CPAP at bedtime (9) Coronary artery disease: Plan: Chest pain unlikely to be ischemic Troponins all negative to date cont statin, cont beta julisa (10) Hypertension: Plan: Cont BB Cont JASPREET (11) Chronic respiratory failure with hypoxia: Plan: on home O2 - 2nd obesity-hypoventilation? asthma? combination? other? Plan: will need PT/OT while here Admission and Anticipated Discharge Date Admission Date: November 11, 2020 Results & Data Results & Data ([facility]) Vital Signs (Past 12 Hours) Vital Signs Temp Pulse Resp BP Pulse Ox 11/12/20 06:41 97.7 F 95 H 22 170/107 H 95 11/12/20 02:42 97.7 F 96 H 13 133/107 H 96 11/11/20 22:50 97.9 F 102 H 16 173/105 H 94 11/11/20 20:29 98.1 F 96 H 19 163/113 H 95 PG Care Time/CCT Total # of Minutes Spent Total Time Spent with Patient: Total time spent is greater than 50% in coordination of care (as documented) at patient's floor/unit and/or counseling patient: Coding Diagnoses Pleuritic chest pain R07.[address] R93.89 Atrial fibrillation with rapid ventricular response I48.91 Gout M10.9 Chronicity: acute Gout etiology: unspecified cause Gout site: foot Laterality: right Obesity hypoventilation syndrome E66.2 GERD (gastroesophageal reflux disease) K21.9 Asthma J45.909 Asthma complication type: uncomplicated Asthma persistence: persistent Asthma severity: unspecified severity Obstructive sleep apnea G47.33 Coronary artery disease I25.10 Hypertension I10 Hypertension type: unspecified Chronic respiratory failure with hypoxia J96.11 (1) Gout Chronicity: acute Gout etiology: unspecified cause Gout site: foot Laterality: right Qualified Code(s): M10.9 - Gout, unspecified (2) Asthma Asthma complication type: uncomplicated Asthma persistence: persistent Asthma severity: unspecified severity Qualified Code(s): J45.909 - Unspecified asthma, uncomplicated (3) Hypertension Hypertension type: unspecified Qualified Code(s): I10 - Essential (primary) hypertension
--- NOTE | 2020-11-12 08:33 | Electrocardiogram Report ---
Test Reason : Blood Pressure : / mmHG Vent. Rate : 114 BPM Atrial Rate : 093 BPM P-R Int : 000 ms QRS Dur : 080 ms QT Int : 286 ms P-R-T Axes : 000 000 -45 degrees QTc Int : 394 ms Atrial fibrillation with rapid ventricular response Diffuse Nonspecific T wave abnormality Abnormal ECG When compared with ECG of 11-NOV-2020 06:09, No significant change was found Confirmed by Gael Mariee ([id number]) on 11/12/2020 8:33:43 AM Referred By: REFERRED SELF Confirmed By:Gael Mariee
[2020-11-12] MEDS ORDERED: POTASSIUM CHLORIDE CRTAB 20 MEQ TABCR PO SCH (09:00)
[2020-11-12] MEDS ORDERED: METOPROLOL SUCC 50MG EXT REL TAB PO SCH (09:00)
[2020-11-12] MEDS: DOXYCYCLINE HYCLATE 100 MG in DEXTROSE 5% 100 ML IV SCH (09:02)
[2020-11-12] MEDS: cefTRIAXone SODIUM 2,000 MG in DEXTROSE 5% 50 ML IV SCH (09:03)
[2020-11-12] MEDS: UMECLIDINIUM BROMIDE 62.5MCG/BLISTER 7 PUFFS/INHALER INH SCH (09:04)
[2020-11-12] MEDS: FLUTICASONE/VILANTEROL 200/25MCG 14 PUFFS/INHALER INH SCH (09:04)
[2020-11-12] MEDS: BRIMONIDINE TARTRATE 0.2% 5ML OPB SCH (09:04)
[2020-11-12] MEDS: COLCHICINE 0.6 MG TAB PO SCH (09:05)
[2020-11-12] MEDS: PANTOprazole 40 MG TAB PO SCH (09:06)
[2020-11-12] MEDS: allopurinoL 300 MG TAB PO SCH (09:06)
[2020-11-12] MEDS: lisinopril 10 MG TAB PO SCH (09:06)
[2020-11-12] MEDS: LORATADINE 10 MG TAB PO SCH (09:07)
[2020-11-12] MEDS: IBUPROFEN 600 MG TAB PO SCH (09:08)
--- NOTE | 2020-11-12 12:33 | Cardiology Progress Note ---
Date of Service November 12, 2020 Assessment & Plan (1) Atrial fibrillation with rapid ventricular response: (2) Permanent atrial fibrillation: Plan: Agree with upward titration of beta-julisa for better rate control. I sometimes add metoprolol to carvedilol to achieve the right balance of antihypertensive and negative chronotropic benefits. In this case, he was only on a small dose of carvedilol, so switching to metoprolol is reasonable as well. Ventricular rate goal range 80-100 bpm. He is anticoagulated with rivaroxaban, no bleeding complications. (3) Chest pain: Plan: Pleuritic chest pain with negative enzymes and nondynamic ECG during pain strongly weigh against cardiac etiology. Given resolution of his chest pain and several potential alternative explanations, would not pursue further cardiac ischemic work-up in the absence of more characteristic symptoms. (4) Coronary artery disease: Plan: As noted above, his pain is very atypical for myocardial ischemia and there is no enzyme or ECG evidence for this either. If, for some reason, reassessment of his coronary status is felt necessary, a dobutamine stress echocardiogram as an outpatient would be reasonable. (5) Hypertension: Plan: Persistent mild hypertension. Could add low dose amlodipine (2.5 or 5 mg daily) if BP elevations persist. (6) Chronic respiratory failure with hypoxia: Plan: Oxygen dependent at baseline. Admission and Anticipated Discharge Date Admission Date: November 11, 2020 Subjective Patient feels much better today, he was asking when he could go home. He notes that his pleuritic chest discomfort has completely resolved. He denies any dyspnea at rest, he can walk to the commode without much difficulty. He denies subjective palpitations, lightheadedness, or presyncope. Telemetry showed atrial fibrillation with ventricular rate ranging from 90-110 bpm. Physical Exam Physical Exam: No distress. BP normotensive to mildly hypertensive (systolic and diastolic) Pulse currently 100 bpm and irregular. Skin: no ecchymoses or generalized lesions. HEENT: unremarkable. Neck: Jugular venous pulse residential to the angle of the jaw at 60 degrees, no obvious carotid bruits. Lungs: Mildly decreased breath sounds but generally clear. No accessory muscle use. Cardiac: Irregular rhythm with normal S1 and readily audible S2, 2/6 apical holosystolic murmur which is nonradiating. No diastolic murmur. Abdomen: benign. Extremities: 1+ pretibial edema with chronic stasis changes, pulses intact. Neurologic: normal affect and conversation, nonfocal. Results & Data ([facility]) Vital Signs (Past 12 Hours) Vital Signs Temp Pulse Pulse Resp BP Pulse Ox 11/12/20 09:13 100 H 23 90 11/12/20 08:00 98.2 F 139/84 11/12/20 06:41 97.7 F 95 H 22 170/107 H 95 11/12/20 02:42 97.7 F 96 H 13 133/107 H 96 Laboratory Results Hemoglobin stable at 12.4, white count normalized at 8, normal platelet count. Potassium normalized to 3.7, creatinine 0.68. Diagnostic Findings ECG today showed atrial fibrillation with ventricular rate of 114 bpm, diffuse T wave flattening. Compared with yesterday's ECG, no significant change. PG Care Time/CCT Total # of Minutes Spent Total Time Spent with Patient: Total time spent is greater than 50% in coordination of care (as documented) at patient's floor/unit and/or counseling patient: Coding Level of Care Code 39142 Subseq Hosp Care Lvl 3 Diagnoses Atrial fibrillation with rapid ventricular response I48.91 Permanent atrial fibrillation I48.21 Chest pain R07.9 Chest pain type: unspecified Coronary artery disease I25.10 Chronic respiratory failure with hypoxia J96.11 Hypertension I10 Hypertension type: unspecified (1) Chest pain Chest pain type: unspecified Qualified Code(s): R07.9 - Chest pain, unspecified (2) Hypertension Hypertension type: unspecified Qualified Code(s): I10 - Essential (primary) hypertension
[2020-11-12] MEDS ORDERED: CONSULT PHARMACY STA (14:17)
--- NOTE | 2020-11-12 15:50 | Discharge Summary ---
Date of Service November 12, 2020 Admission HPI Per Admitting Provider The patient is a 70-year-old male with a past medical history including paroxysmal atrial fibrillation, obesity hypoventilation syndrome, asthma, GERD, obstructive sleep apnea, lower GI bleed, CAD, pulmonary asbestosis, hypertension, dyspnea on exertion and left knee DJD. He presents with symptoms as noted above, in response to interventions in the ED as noted above. Patient did also receive a single dose of morphine 2 mg IV while in the ED. Principal Diagnosis pneumonia pericarditis chest pain Discharge Exam The patient appeared chronicaly ill, dyspneic which he states is his baseline Vital signs as documented. Lungs are labored, no loss of focal breath sounds Cardiac exam, Rhythm is regular.. No murmurs, rubs or gallops. Abdominal exam reveals normal bowel sounds, soft non tender, no masses Extremities are 1+edematous and both pedal pulses are normal. Neurologic exam is alert and oriented, no focal loss of strength or sensation Skin is with bruises of various stages Psychologically is without concerns for anxiety or depression. Discharge Data Allergies Allergy/AdvReac Type Severity Reaction Status Date / Time No Known Drug Allergies Allergy Unknown NKDA Verified 11/11/20 00:16 soap Allergy Unknown "Tide Verified 11/11/20 12:16 laundry detergent" -- rash Consultations 11/11/20 01:23 ED Decision to Admit Stat 11/11/20 05:55 Consult Cardiology Routine Ordered Studies 11/11/20 12:13 CT angio chest PE protocol Routine Hospital Course (1) Pleuritic chest pain: Troponins all negative. No evidence of ACS. Elevated sed rate and crp, along with features of his pain, may suggest pe ricarditis. Can't rule out pneumonia as the cause of his symptoms. will d/c on antibiotics CT chest without PEs. responded to toradol dramatically, so for pericarditis start ibuprofen 600mg BID x 2 weeks and colchicine 0.6mg BID. will have pcp and cardiology determine if needs full 3 months (2) Abnormal chest CT: groundglass opacities b/l. Rx for pneumonia as precautionary measure. (3) Atrial fibrillation with rapid ventricular response: Low K and Low mag replaced. Change to metoprolol succinate 100mg bid Cont xarelto. Echo noted. Appreciate cardiology consultation. [facility] (4) Gout: Continue allopurinol Recent right mid-foot flare - resolved on exam today, maybe what is issue with pericarditis (5) Obesity hypoventilation syndrome: Obesity hypoventilation syndrome Cont NC O2 (6) GERD (gastroesophageal reflux disease): Continue PPI with NSAID use (7) Asthma: No obvious exacerbation at this time Cont inhalers (8) Obstructive sleep apnea: CPAP at bedtime (9) Coronary artery disease: Chest pain unlikely to be ischemic Troponins all negative to date cont statin, cont beta julisa cardiology wishes to treat pneuonia and pericarditis, if stress will do once these are resolved (10) Hypertension: Cont BB Cont JASPREET (11) Chronic respiratory failure with hypoxia: on home O2 - 2nd obesity-hypoventilation? will have home pt Total Time Total Time Spent Total Time Spent (In Minutes): It required greater than 30 minutes to prepare this patient for discharge Discharge Plan Discharge Items Patient Disposition: Home - Home Health Services Reason For Visit: ATRIAL FIB WITH RVR Discharge Diagnosis: chest pain felt secondary to pericarditis and pneumonia Activity: Per Instructions section Activity Comment: slowly increase activity Non-emergency contact: Primary Care Provider and Leaf [facility] Call non-emergency contact if: you have any medication questions, your symptoms worsen and you have a fever Follow-up/Referrals: PCP,NO [Primary Care Provider] - Diet: Low Sodium (2gm) Addtl Attending Provider Instructions: we are sending you home treating you for both pneumonia and inflammation in the sac around your heart. Antibiotics we prescribed for you pneumonia please complete all them. For the treatment of the pericarditis, inflammation of the sac around your heart, will use ibuprofen and medicine called colchicine. Ibuprofen may cause some stomach upset this will be used for no more than 2 weeks. If your stomach upset become significant please stop the medication and contact your family doctor. Colchicine should be used for slightly longer than that if you have any problems with diarrhea please also stop medication and call your family doctor. Please have your family doctor arrange a follow-up with [facility] of your choice to further follow your pericarditis treatment. Pending Studies at Discharge: No Stand-Alone Forms: My [employer], Smoking Cessation Medications and DC Order Prescriptions: New metoprolol succinate 50 mg Tablet Extended Release 24 Hr 100 mg PO BID Qty: 60 RF: 0 ibuprofen 600 mg Tablet 600 mg PO BID Qty: 56 RF: 0 colchicine [Colcrys] 0.6 mg Tablet 0.6 mg PO BID Qty: 60 RF: 1 cefdinir 300 mg capsule 300 mg PO BID 7 Days Qty: 14 RF: 0 azithromycin 250 mg tablet See Rx Instructions .ROUTE .COMPLEX Qty: 6 RF: 0 Continued omeprazole 20 mg Tablet,Delayed Release (Dr/Ec) 20 mg PO QAM RF: 0 Fiber 6 1,000 mg Tablet 3 tab PO TID RF: 0 furosemide [Lasix] 40 mg Tablet 40 mg PO QAM RF: 0 latanoprost [Xalatan] 0.005 % Drops 1 drp OPB HS RF: 0 atorvastatin [Lipitor] 80 mg Tablet 40 mg PO HS RF: 0 lisinopril [Zestril] 20 mg Tablet 20 mg PO BID RF: 0 potassium chloride [Klor-Con M20] 20 mEq Tablet,Er Particles/Crystals 20 meq PO QAM RF: 0 nitroglycerin [Nitrostat] 0.4 mg Tablet, Sublingual 0.4 mg sublingual UD PRN (Reason: Chest Pain) RF: 0 albuterol sulfate [Ventolin HFA] 90 mcg/actuation Hfa Aerosol Inhaler 2 puff INHALATION QID PRN (Reason: Shortness Of Breath) RF: 0 loratadine [Claritin] 10 mg Tablet 10 mg PO QAM RF: 0 budesonide-formoterol [Symbicort] 160-4.5 mcg/actuation Hfa Aerosol Inhaler 2 puff INHALATION BID RF: 0 Spiriva with HandiHaler 18 mcg Capsule, W/Inhalation Device 1 cap INHALATION QAM RF: 0 Xarelto 20 mg Tablet 20 mg PO QDD RF: 0 prednisone 10 mg tablet See Rx Instructions .ROUTE .COMPLEX Qty: 19 RF: 0 oxycodone 5 mg tablet 2.5 mg PO Q12H PRN (Reason: pain) Qty: 5 RF: 0 allopurinol 300 mg Tablet 300 mg PO QAM RF: 0 brimonidine 1 drp OPB BID RF: 0 Discontinued carvedilol 6.25 mg Tablet 0 mg PO BID RF: 0 Discharge Orders: Discharge Order (Routine); Ordered 11/12/20 Ordered By: Lavelle Catalan/Other Patient Handouts: Pericarditis Admission Data Admit Date/Time: 11/11/20 02:36 Attending Provider: Lavelle Richey Admit Provider: Vincent Corrales Primary Care Provider: PCP,NO Other Providers: Vincent Corrales ; Manuel Patterson ; [facility] Other Interventions: Discharge Summary Assessment (RN) Last Done: 11/12/20 14:52 Coding Level of Care Code D/C DAY MANAGEMENT >30 MINS Diagnoses Pleuritic chest pain R07.[address] R93.89 Atrial fibrillation with rapid ventricular response I48.91 Gout M10.9 Chronicity: acute Gout etiology: unspecified cause Gout site: foot Laterality: right Obesity hypoventilation syndrome E66.2 GERD (gastroesophageal reflux disease) K21.9 Asthma J45.909 Asthma complication type: uncomplicated Asthma persistence: persistent Asthma severity: unspecified severity Obstructive sleep apnea G47.33 Coronary artery disease I25.10 Hypertension I10 Hypertension type: unspecified Chronic respiratory failure with hypoxia J96.11 Home Health Attestation I certify that this patient is under my care and that I, or a physicians compliance assistant working with me, had a face to-face encounter that meets the home health [id number] encounter requirements with this patient. The encounter with the patient was in whole, or in part, for the following medical condition, which is the primary reason for home health care (list medical condition): I certify that, based on my findings, the following services are medically necessary home health services: HOME PT My clinical findings support the need for the above services because:pt has severe hypoxic respiratory failure Further, I certify that my clinical findings support that this patient is homebound (i.e. absences from home require considerable and taxing effort and are for medical reasons or voodoo services or infrequently or of short duration when for other reasons) because: his respiratory failure limit excursions from home Certification for Home Health Services: Based on the above findings, I certify that this patient is confined to the home and needs intermittent alf care, physical therapy and/or speech th erapy or continues to need occupational therapy. The patient is under my care, and I have initiated the establishment of the plan of care. This patient will be followed by a physician who will periodically review the plan of care.
== END 2020-11-12 16:03 | disposition home or self-care (01) | DRG 314 ==
LOC: ED 00:03 → SUATTDRO 02:36 → 1E 02:36